=== PATIENT | female | born 1960 | race Caucasian/White ===

== ENCOUNTER → 2016-02-21 | Outpatient (CLI) | payer OTHER ==
[2016-02-21 13:24] LABS: HEMATOCRIT 43.6 % (36.0-47.0); HGB HCT DIFFERENCE 1.4; MEAN CORPUSCULAR HEMOGLOBIN 29.6 pg (27.0-33.4); MEAN CORPUSCULAR HGB CONC 34.4 g/dL (32.0-36.0); MEAN CORPUSCULAR VOLUME 86 fl (80-97); RED BLOOD COUNT 5.06 10^6/uL (3.72-5.28); RED CELL DISTRIBUTION WIDTH 13.9 % (11.5-14.0); WHITE BLOOD COUNT 7.1 10^3/uL (4.0-10.5)
[2016-02-21 13:27] LABS: PROTHROMBIN TIME 12.7 SEC (11.4-15.4)
[2016-02-21 13:28] LABS: PARTIAL THROMBOPLASTIN TIME 30.6 SEC (23.5-35.8)
[2016-02-21 13:46] LABS: ANION GAP 15 (5-19); BLOOD UREA NITROGEN 13 mg/dL (7-20); CALCIUM 9.7 mg/dL (8.4-10.2); CARBON DIOXIDE 25 mmol/L (22-30); CHLORIDE 102 mmol/L (98-107); CREATININE RESULT 0.62 mg/dL (0.52-1.25); GLUCOSE 81 mg/dL (75-110); POTASSIUM 4.8 mmol/L (3.6-5.0); SODIUM 141.9 mmol/L (137-145)
== END ==
LOC: OD 12:17
PROVIDERS: ATTEND Anesthesiology Pain Medicine
DX: Z01.89 Encounter for other specified special examinations (principal)
CPT/HCPCS: 36415; 80048; 85027; 85610; 85730

== ENCOUNTER 2016-08-05 05:49 | Emergency (ER) | payer OTHER ==
--- NOTE | 2016-08-05 07:06 | ER Document Report ---
ED Medical Screen (RME) - General Chief Complaint: Chest Wall Pain Stated Complaint: CHEST TIGHTNESS,COUGH Time Seen by Provider: 08/05/16 07:04 Information source: Patient Notes: Patient presents to the emergency department with complaints of cough fever. She denies chest pain at rest. She reports it only hurts when she coughs. She reports symptoms started on Friday. Started with a tickle in her throat. TRAVEL OUTSIDE OF THE [place] IN LAST 30 DAYS: No - Related Data Allergies/Adverse Reactions: aspirin [Aspirin] Allergy (Verified 01/25/15 18:35) azithromycin [Azithromycin] Allergy (Verified 01/25/15 18:35) ketorolac tromethamine [From Toradol] Allergy (Verified 01/25/15 18:35) naproxen sodium [From Anaprox] Allergy (Verified 01/25/15 18:35) Penicillins Allergy (Verified 01/25/15 18:35) tetracycline [Tetracycline] Allergy (Verified 01/25/15 18:35) Past Medical History - Past Medical History Cardiac Medical History: Denies: Hx Heart Attack, Hx Hypertension Pulmonary Medical History: Reports: Hx Asthma - CHILD NO PROBLEMS ADULT Neurological Medical History: Reports: Hx Migraine. Denies: Hx Cerebrovascular Accident, Hx Seizures Renal/ Medical History: Denies: Hx Peritoneal Dialysis GI Medical History: Denies: Hx Hepatitis, Hx Hiatal Hernia, Hx Ulcer Infectious Medical History: Denies: Hx Hepatitis Past Surgical History: Reports: Hx Hysterectomy, Hx Orthopedic Surgery - Bilateral knee, left foot and neck. Denies: Hx Mastectomy, Hx Open Heart Surgery, Hx Pacemaker - Immunizations Hx Diphtheria, Pertussis, Tetanus Vaccination: No Physical Exam - Vital signs Vitals: Temp Pulse Resp BP Pulse Ox 98.1 F 82 24 H 137/74 H 99 08/05/16 06:07 08/05/16 06:07 08/05/16 06:07 08/05/16 06:07 08/05/16 06:07 Course - Vital Signs Vital signs: Temp Pulse Resp BP Pulse Ox 98.1 F 82 24 H 137/74 H 99 08/05/16 06:07 08/05/16 06:07 08/05/16 06:07 08/05/16 06:07 08/05/16 06:07
--- NOTE | 2016-08-05 07:33 | RADIOLOGY REPORT (SQ) ---
EXAM DESCRIPTION: CHEST PA/LAT COMPLETED DATE/TIME: 08/05/2016 7:22 am REASON FOR STUDY: cough, fever COMPARISON: 10/09/2011. 10/14/2010. EXAM PARAMETERS: NUMBER OF VIEWS: two views TECHNIQUE: Digital Frontal and Lateral radiographic views of the chest acquired. RADIATION DOSE: NA LIMITATIONS: none FINDINGS: LUNGS AND PLEURA: Mild reticulonodular interstitial markings. MEDIASTINUM AND HILAR STRUCTURES: No masses or contour abnormalities. HEART AND VASCULAR STRUCTURES: Heart normal size. No evidence for failure. BONES: Moderate disc desiccation. HARDWARE: Cervicothoracic hardware fusion. OTHER: No other significant finding. IMPRESSION: Mild reticulonodular interstitial markings with interval worsening which may indicate ch ronic interstitial lung disease, atypical pneumonia, and/or mild pulmonary edema. TECHNICAL DOCUMENTATION: JOB ID: [id number] [employer]- All Rights Reserved
[2016-08-05 07:35] LABS: ABSOLUTE BASOPHILS # (AUTO) 0.1 10^3/uL (0.0-0.2); ABSOLUTE EOSINOPHILS # (AUTO) 0.5 10^3/uL (0.0-0.6); ABSOLUTE LYMPHOCYTES (AUTO) 2.5 10^3/uL (0.5-4.7); ABSOLUTE MONOCYTES (AUTO) 0.8 10^3/uL (0.1-1.4); ABSOLUTE NEUT (AUTO) 5.1 10^3/uL (1.7-8.2); BASOPHILS % (AUTO) 0.8 % (0-2); EOSINOPHILS % (AUTO) 5.8 % (0-6); LYMPHOCYTES % (AUTO) 27.8 % (13-45); MEAN CORPUSCULAR HEMOGLOBIN 29.2 pg (27.0-33.4); MEAN CORPUSCULAR HGB CONC 33.3 g/dL (32.0-36.0); MEAN CORPUSCULAR VOLUME 88 fl (80-97); MONOCYTES % (AUTO) 9.3 % (3-13); RED BLOOD COUNT 4.79 10^6/uL (3.72-5.28); RED CELL DISTRIBUTION WIDTH 13.6 % (11.5-14.0); SEGMENTED NEUTROPHILS % (AUTO) 56.3 % (42-78)
[2016-08-05] MEDS ORDERED: BENZONATATE 100 MG CAPSULE PO ONE (07:45)
[2016-08-05] MEDS ORDERED: IPRATROPIUM/ALBUTEROL 0.5-2.5 MG/3 ML AMPUL NEB ONE (07:45)
--- NOTE | 2016-08-05 07:45 | ER Document Report ---
ED General - General Chief Complaint: Chest Wall Pain Stated Complaint: CHEST TIGHTNESS,COUGH Time Seen by Provider: 08/05/16 07:04 Mode of Arrival: Ambulatory Information source: Patient Notes: Patient is a 56-year-old female who presents to the ER today for 1 week of cough that is worsening with now chills, some diarrhea, shortness of breath, wheezing. Patient denies history of asthma or COPD but states that she did start smoking again, 1 pack per about 3 days. She states that she has been taking Mucinex DM and Tessalon [id number] which have been helping a little but she still seems to be getting worse. She denies actual chest pain, just states that it is tight when she feels short of breath. She denies any nausea, vomiting, history of heart attack or stroke. TRAVEL OUTSIDE OF THE [place] IN LAST 30 DAYS: No - Related Data Allergies/Adverse Reactions: aspirin [Aspirin] Allergy (Verified 01/25/15 18:35) azithromycin [Azithromycin] Allergy (Verified 01/25/15 18:35) ketorolac tromethamine [From Toradol] Allergy (Verified 01/25/15 18:35) naproxen sodium [From Anaprox] Allergy (Verified 01/25/15 18:35) Penicillins Allergy (Verified 01/25/15 18:35) tetracycline [Tetracycline] Allergy (Verified 01/25/15 18:35) Past Medical History - General Information source: Patient - Social History Smoking Status: Unknown if Ever Smoked Family History: Reviewed & Not Pertinent - Past Medical History Cardiac Medical History: Denies: Hx Heart Attack, Hx Hypertension Pulmonary Medical History: Reports: Hx Asthma - CHILD NO PROBLEMS ADULT Neurological Medical History: Reports: Hx Migraine. Denies: Hx Cerebrovascular Accident, Hx Seizures Renal/ Medical History: Denies: Hx Peritoneal Dialysis GI Medical History: Denies: Hx Hepatitis, Hx Hiatal Hernia, Hx Ulcer Infectious Medical History: Denies: Hx Hepatitis Past Surgical History: Reports: Hx Hysterectomy, Hx Orthopedic Surgery - Bilateral knee, left foot and neck. Denies: Hx Mastectomy, Hx Open Heart Surgery, Hx Pacemaker - Immunizations Hx Diphtheria, Pertussis, Tetanus Vaccination: No Review of Systems - Review of Systems Constitutional: See HPI EENT: No symptoms reported Cardiovascular: No symptoms reported Respiratory: See HPI Gastrointestinal: No symptoms reported Genitourinary: No symptoms reported Female Genitourinary: No symptoms reported Musculoskeletal: No symptoms reported Skin: No symptoms reported Hematologic/Lymphatic: No symptoms reported Neurological/Psychological: No symptoms reported Physical Exam - Vital signs Vitals: Temp Pulse Resp BP Pulse Ox 98.1 F 82 24 H 137/74 H 99 08/05/16 06:07 08/05/16 06:07 08/05/16 06:07 08/05/16 06:07 08/05/16 06:07 - Notes Notes: PHYSICAL EXAMINATION: GENERAL: Mildly ill-appearing, patient has very raspy voice, but in no acute distress. HEAD: Atraumatic, normocephalic. EYES: Pupils equal round and reactive to light, extraocular movements intact, sclera anicteric, conjunctiva are normal. ENT: ear canals without erythema or foreign body, TMs pearly wan with good bony landmarks, nares patent, oropharynx clear without exudates. Moist mucous membranes. Airway patent NECK: Normal range of motion, supple without lymphadenopathy LUNGS: Minimal expiratory wheezes and lower lung francisco, no rales or rhonchi. HEART: Regular rate and rhythm without murmurs ABDOMEN: Soft, no tenderness. No guarding, no rebound BACK: no vertebral tenderness, normal ROM GI/: no CVA tenderness EXTREMITIES: Normal range of motion, no pitting edema. No cyanosis. NEUROLOGICAL: Cranial nerves grossly intact. Normal sensory/motor exams. PSYCH: Normal mood, normal affect. SKIN: Warm, Dry, normal turgor, no rashes or lesions noted Course - Re-evaluation Re-evalutation: 08/05/16 08:32 Lab work all unremarkable today including a normal white blood cell count, patient is afebrile with normal vital signs, 99% oxygen saturation on room air, unlabored breathing, EKG revealed a normal sinus rhythm at a rate of 82 bpm without evidence of ischemia or abnormality. Patient received cough medication , breathing treatments here and states that she does feel better. I will start her on Levaquin at this time for possible atypical pneumonia seen on chest x- ray. 08/05/16 08:33 - Vital Signs Vital signs: Temp Pulse Resp BP Pulse Ox 98.1 F 82 24 H 137/74 H 99 08/05/16 06:07 08/05/16 06:07 08/05/16 06:07 08/05/16 06:07 08/05/16 06:07 - Laboratory Result Diagrams: 08/05/16 07:13 08/05/16 07:13 Discharge - Discharge Clinical Impression: Pneumonia Qualifiers: Pneumonia type: due to unspecified organism Laterality: unspecified laterality Lung location: lower lobe of lung Qualified Code(s): J18.1 - Lobar pneumonia, unspecified organism Instructions: Pneumonia ([facility]) Additional Instructions: Return immediately for any new or worsening symptoms. Follow up with primary care provider, call tomorrow to make followup appointment. Prescriptions: Hydrocodone Bit/Homatropine [Hycodan Syrup 5-1.5 mg/5 ml Ud Cup] 5 ml PO Q4HP PRN #120 ml PRN Reason: Levofloxacin [Levaquin 750 mg Tablet] 750 mg PO DAILY #10 tablet Forms: Return to Work
[2016-08-05] MEDS ORDERED: LEVOFLOXACIN 750 MG/D5W RTU 150 ML IV ONE (07:46)
[2016-08-05] MEDS ORDERED: LEVOFLOXACIN 750 MG TABLET PO ONE (07:47)
[2016-08-05 07:58] LABS: ALANINE AMINOTRANSFERASE 23 U/L (9-52); ALBUMIN 3.6 g/dL (3.5-5.0); ALKALINE PHOSPHATASE 67 U/L (38-126); ANION GAP 8 (5-19); ASPARTATE AMINO TRANSFERASE 16 U/L (14-36); BILIRUBIN,DIRECT 0.2 mg/dL (0.0-0.4); BILIRUBIN,TOTAL 0.8 mg/dL (0.2-1.3); BLOOD UREA NITROGEN 13 mg/dL (7-20); CALCIUM 9.2 mg/dL (8.4-10.2); CARBON DIOXIDE 28 mmol/L (22-30); CHLORIDE 107 mmol/L (98-107); CREATININE RESULT 0.73 mg/dL (0.52-1.25); GLUCOSE 94 mg/dL (75-110); SODIUM 142.6 mmol/L (137-145); TOTAL PROTEIN 6.5 g/dL (6.3-8.2)
[2016-08-05] MEDS ORDERED: ALBUTEROL SULFATE HFA (90 MCG/PUFF) 8 GM MDI (1 MDI/ER DISP) IH PRN (08:37)
--- NOTE | 2016-08-05 08:42 | EKG REPORT ---
SEVERITY:- BORDERLINE ECG - SINUS RHYTHM PROBABLE LEFT ATRIAL ABNORMALITY : Confirmed by: Meenakshi Bravo 05-Aug-2016 08:40:43
[2016-08-05 09:22] VITALS: BP 102/56
== END 2016-08-05 09:22 | disposition home or self-care (01) ==
LOC: ER 05:49
DX: J18.1 Lobar pneumonia, unspecified organism (principal); R05 Cough; R68.83 Chills (without fever); R19.7 Diarrhea, unspecified; R06.02 Shortness of breath; R07.89 Other chest pain; R06.2 Wheezing; I10 Essential (primary) hypertension; Z88.6 Allergy status to analgesic agent; Z88.1 Allergy status to other antibiotic agents; Z88.8 Allergy status to other drugs, medicaments and biological substances; Z88.0 Allergy status to penicillin
CPT/HCPCS: 94640; 99284; 36415; 85025; 80053; 71020; 93005; 93010; J3490; J7620

== ENCOUNTER 2017-02-18 13:45 | Emergency (ER) | payer OTHER ==
--- NOTE | 2017-02-18 14:38 | ER Document Report ---
HPI - HPI Patient complains to provider of: Left knee pain and swelling Onset: Yesterday Onset/Duration: Gradual Quality of pain: Throbbing Severity: Moderate Pain Level: 4 Context: Patient states she noticed her knee hurting yesterday and last night she noticed some swelling. Denies injury. Patient does walk with limp due to nerve pain to left foot but denies known injury. Denies history of arthritis or gout. No redness to the knee. Associated Symptoms: None Exacerbated by: Walking Relieved by: Denies Similar symptoms previously: No Recently seen / treated by doctor: No - ROS ROS below otherwise negative: Yes Systems Reviewed and Negative: Yes All other systems reviewed and negative - CONSTITUTIONAL Constitutional: DENIES: Fever - EENT EENT: DENIES: Congestion - NEURO Neurology: DENIES: Headache - CARDIOVASCULAR Cardiovascular: DENIES: Chest pain - RESPIRATORY Respiratory: DENIES: Trouble Breathing - GASTROINTESTINAL Gastrointestinal: DENIES: Abdominal Pain - MUSCULOSKELETAL Musculoskeletal: REPORTS: Extremity pain - DERM Skin Color: Normal Past Medical History - General Information source: Patient - Social History Smoking Status: Current Every Day Smoker Chew tobacco use (# tins/day): No Frequency of alcohol use: Occasional Drug Abuse: None Lives with: Spouse/Significant other Family History: Reviewed & Not Pertinent Patient has suicidal ideation: No Patient has homicidal ideation: No Pulmonary Medical History: Reports: Hx Asthma - CHILD NO PROBLEMS ADULT Neurological Medical History: Reports: Hx Migraine Musculoskeltal Medical History: Reports Other - Nerve damage left foot after bunionectomy 4 years ago Past Surgical History: Reports: Hx Hysterectomy, Hx Orthopedic Surgery - Bilateral knee, left foot and neck - Immunizations Hx Diphtheria, Pertussis, Tetanus Vaccination: No Vertical Provider Document - CONSTITUTIONAL Agree With Documented VS: Yes Exam Limitations: No Limitations General Appearance: WD/WN, No Apparent Distress - INFECTION CONTROL TRAVEL OUTSIDE OF THE [place] IN LAST 30 DAYS: No - HEENT HEENT: Atraumatic, Normocephalic - RESPIRATORY Respiratory: Breath Sounds Normal, No Respiratory Distress O2 Sat by Pulse Oximetry: 97 - CARDIOVASCULAR Cardiovascular: Regular Rate, Regular Rhythm - MUSCULOSKELETAL/EXTREMETIES Musculoskeletal/Extremeties: Tender - Medial left knee, Edema - Mild edema noted to medial left knee.. negative: Eccymosis Notes: No erythema or warmth noted to left knee. - NEURO Level of Consciousness: Awake, Alert, Appropriate - DERM Integumentary: Warm, Dry, No Rash Course - Re-evaluation Re-evalutation: 02/18/17 15:47 X-ray showed no fracture but patient does have a small joint effusion. This was discussed with the patient. - Vital Signs Vital signs: Temp Pulse Resp BP Pulse Ox 98.3 F 85 18 114/68 97 02/18/17 13:57 02/18/17 13:57 02/18/17 13:57 02/18/17 13:57 02/18/17 13:57 Procedures - Immobilization Left Knee Pre-Proc Neuro Vasc Exam: Normal Immobilizer type: Gonzalez wrap, Crutches Performed by: PCT Post-Proc Neuro Vasc Exam: Normal Alignment checked and good: Yes Discharge - Discharge Clinical Impression: Effusion of knee joint, left Condition: Good Disposition: HOME, SELF-CARE Instructions: Use of Crutches ([facility]), Ice & Elevation ([facility]) Additional Instructions: Keep leg iced and elevated Ibuprofen or naproxen as needed for pain and swelling of knee Tramadol for pain as needed if ibuprofen does not help with the pain Follow-up with your doctor next week for recheck Return as needed Prescriptions: Tramadol HCl 50 mg PO TID PRN #20 tablet PRN Reason: Forms: Return to Work
--- NOTE | 2017-02-18 15:36 | RADIOLOGY REPORT (SQ) ---
EXAM DESCRIPTION: KNEE LEFT 4 VIEW COMPLETED DATE/TIME: 02/18/2017 3:20 pm REASON FOR STUDY: PAIN, SWELLING COMPARISON: None. NUMBER OF VIEWS: Four views. TECHNIQUE: AP, lateral, and both oblique radiographic images acquired of the left knee. LIMITATIONS: None. FINDINGS: MINERALIZATION: Osteopenic BONES: No acute fracture or dislocation. No worrisome bone lesions. JOINT: Small suprapatellar knee joint effusion. Mild patellofemoral, medial, and lateral compartment joint space narrowing SOFT TISSUES: No soft tissue swelling. No radio-opaque foreign body. OTHER: No other significant finding. IMPRESSION: No acute fracture Small joint effusion with joint space narrowing from osteoarthritis TECHNICAL DOCUMENTATION: JOB ID: [id number] [employer]- All Rights Reserved
[2017-02-18 16:16] VITALS: BP 113/62
== END 2017-02-18 16:15 | disposition home or self-care (01) ==
LOC: ER 13:45
DX: M25.462 Effusion, left knee (principal); M25.562 Pain in left knee; M79.89 Other specified soft tissue disorders; F17.200 Nicotine dependence, unspecified, uncomplicated
CPT/HCPCS: 99283

== ENCOUNTER → 2017-06-03 | Outpatient (CLI) | payer OTHER ==
--- NOTE | 2017-06-03 16:35 | WOMENS IMAGING REPORT ---
EXAM DESCRIPTION: BILAT SCREENING MAMMO W/CAD COMPLETED DATE/TIME: 06/03/2017 3:32 pm REASON FOR STUDY: SCREENING MAMMO Z12.31 ENCNTR SCREEN MAMMOGRAM FOR MALIGNANT NEOPLASM OF ERIN COMPARISON: Multiple since 2008 TECHNIQUE: Standard craniocaudal and mediolateral oblique views of each breast recorded using digita l acquisition. LIMITATIONS: None. FINDINGS: No masses, calcifications or architectural distortion. No areas of suspicion. Read with the assistance of CAD. .[facility] - R2 Cenova Version 1.3 .[facility] Imaging - R2 Cenova Version 1.3 .[facility] Imaging - R2 Cenova Version 2.4 .[facility] - R2 Cenova Version 2.4 .[facility] - R2 Certified Surgical Technician Version 9.2 IMPRESSION: NORMAL MAMMOGRAM. BIRADS 1. BREAST DENSITY: b. There are scattered areas of fibroglandular density. BIRAD: 1 NEGATIVE RECOMMENDATION: ROUTINE SCREENING Please continue yearly bilateral screening in May 2018. Consider bilateral screening tomosynthesis COMMENT: The patient has been notified of the results by letter per SA requirements. Additional no tification policies are in place for contacting patient with suspicious or incomplete findings. Quality ID #[id number]: The [employer] recommends an annual screening mammogram for women aged 40 years or over. This facility utilizes a reminder system to ensure that all patients receive reminder letters, and/or direct phone calls for appointments. This includes reminders for routine scr eening mammograms, diagnostic mammograms, or other Breast Imaging Interventions when appropriate. Th is patient will be placed in the appropriate reminder system. The [employer] (ACR) has developed recommendations for screening MRI of the breast s in certain patient populations, to be used in conjunction with mammography. Breast MRI surveillanc e may be appropriate for women with more than 20% lifetime risk of developing breast cancer as deter mined by genetic testing, significant family history of the disease, or history of mantle radiation f or Hodgkins Disease. ACR Practice Guidelines 2008. TECHNICAL DOCUMENTATION: FINDING NUMBER: (1) ASSESSMENT: (1) JOB ID: [id number] [employer])- All Rights Reserved Reading location - IP/workstation name: [email or web address]
== END ==
LOC: WI 07:43
PROVIDERS: ATTEND Family Medicine
DX: Z12.31 Encounter for screening mammogram for malignant neoplasm of breast (principal)
CPT/HCPCS: 77067

== ENCOUNTER 2017-10-09 11:38 | Emergency (ER) | payer OTHER ==
--- NOTE | 2017-10-09 11:50 | ER Document Report ---
ED Medical Screen (RME) - General TRAVEL OUTSIDE OF THE [place] IN LAST 30 DAYS: No <AMADOR BENTLEY - Last Filed: 10/09/17 11:50> <WILLI WHITE - Last Filed: 10/09/17 13:42> - General Chief Complaint: Headache Stated Complaint: HEADACHE Notes: 57 years old female was seen by me briefly out in the front triage. Presents with sudden onset of headache blurring of vision and nausea and vomiting since 8 :00 this morning. Also complaining of left shoulder pain. (AMADOR BENTLEY) - Related Data Allergies/Adverse Reactions: aspirin [Aspirin] Allergy (Verified 10/09/17 11:41) azithromycin [Azithromycin] Allergy (Verified 10/09/17 11:41) ketorolac tromethamine [From Toradol] Allergy (Verified 10/09/17 11:41) naproxen sodium [From Anaprox] Allergy (Verified 10/09/17 11:41) Penicillins Allergy (Verified 10/09/17 11:41) tetracycline [Tetracycline] Allergy (Verified 10/09/17 11:41) Past Medical History - Past Medical History Cardiac Medical History: Denies: Hx Heart Attack, Hx Hypertension Pulmonary Medical History: Reports: Hx Asthma - CHILD NO PROBLEMS ADULT Neurological Medical History: Reports: Hx Migraine. Denies: Hx Seizures Renal/ Medical History: Denies: Hx Peritoneal Dialysis GI Medical History: Denies: Hx Hiatal Hernia, Hx Ulcer Past Surgical History: Reports: Hx Hysterectomy, Hx Orthopedic Surgery - Bilateral knee, left foot and neck. Denies: Hx Mastectomy, Hx Open Heart Surgery - Immunizations Hx Diphtheria, Pertussis, Tetanus Vaccination: No <AMADOR BENTLEY - Last Filed: 10/09/17 11:50> - Vital signs Vitals: Pulse Ox 95 10/09/17 12:01 Course - Laboratory Result Diagrams: 10/09/17 12:00 10/09/17 12:36 <WILLI WHITE - Last Filed: 10/09/17 13:42> - Vital Signs Vital signs: Temp Pulse Resp BP Pulse Ox 97 21 H 142/88 H 97 10/09/17 12:06 10/09/17 12:06 10/09/17 12:06 10/09/17 12:06 - Laboratory Laboratory results interpreted by me: 10/09/17 10/09/17 11:53 12:00 RDW 14.1 H Eosinophils % 6.1 H POC Glucose 131 H Doctor's Discharge <AMADOR BENTLEY - Last Filed: 10/09/17 11:50> <WILLI WHITE - Last Filed: 10/09/17 13:42> - Discharge Clinical Impression: Headache Condition: Stable Disposition: HOME, SELF-CARE Instructions: Headache ([facility]) Referrals: REDDY MANTILLA MD [Primary Care Provider] - Follow up as needed
--- NOTE | 2017-10-09 12:05 | RADIOLOGY REPORT (SQ) ---
EXAM DESCRIPTION: CT HEAD WITHOUT COMPLETED DATE/TIME: 10/09/2017 11:51 am REASON FOR STUDY: mp stroke alert protocol COMPARISON: None. TECHNIQUE: Axial images acquired through the brain without intravenous contrast. Images reviewed wi th bone, brain and subdural windows. Additional sagittal and coronal reconstructions were generated. Images stored on PACS. All CT scanners at this facility use dose modulation, iterative reconstruction, and/or weight based d osing when appropriate to reduce radiation dose to as low as reasonably achievable (ALARA). [facility]: Dose Right [facility]: CareDose [facility]: Dose Right [facility]: Teradose 4D [facility]: [employer] RADIATION DOSE: CT Rad equipment meets quality standard of care and radiation dose reduction techniq ues were employed. CTDIvol: 53.2 mGy. DLP: 911 mGy-cm. mGy. LIMITATIONS: None. FINDINGS: VENTRICLES: Normal size and contour. CEREBRUM: No masses. No hemorrhage. No midline shift. No evidence for acute infarction. Normal gra y/white matter differentiation. No areas of low density in the white matter. CEREBELLUM: No masses. No hemorrhage. No alteration of density. No evidence for acute infarction. EXTRAAXIAL SPACES: No fluid collections. No masses. ORBITS AND GLOBE: No intra- or extraconal masses. Normal contour of globe without masses. CALVARIUM: No fracture. PARANASAL SINUSES: No fluid levels. SOFT TISSUES: No mass or hematoma. OTHER: No other significant finding. IMPRESSION: NORMAL BRAIN CT WITHOUT CONTRAST. EVIDENCE OF ACUTE STROKE: NO. COMMENT: Pertinent positive or negative findings of the imaging study reported as a CRITICAL EXAM neftali Carlos At11:59 on 10/09/2017. Category of Critical Exam: Stroke alert. Quality ID # [id number]: Final reports with documentation of one or more dose reduction techniques (e.g., Au tomated exposure control, adjustment of the mA and/or kV according to patient size, use of iterative reconstruction technique) TECHNICAL DOCUMENTATION: JOB ID: [id number] [employer]- All Rights Reserved Reading location - IP/workstation name: [email or web address]
[2017-10-09 12:07] VITALS: BP 142/88
--- NOTE | 2017-10-09 12:11 | ER Document Report ---
ED General - General Chief Complaint: Headache Stated Complaint: HEADACHE Time Seen by Provider: 10/09/17 12:09 TRAVEL OUTSIDE OF THE [place] IN LAST 30 DAYS: No - HPI Patient complains to provider of: headache Notes: 57-year-old female presents with posterior headache 10/10 throbbing in nature without radiation. She is also describing some visual disturbances of wavy lines across both visual francisco. Patient has a history of migraines and she normally gets his visual field disturbance with her classic migraine. Patient states the use resolved in an hour or so but this headache has progressed for 3 hours. Denies focal neurologic deficit - Related Data Allergies/Adverse Reactions: aspirin [Aspirin] Allergy (Verified 10/09/17 11:41) azithromycin [Azithromycin] Allergy (Verified 10/09/17 11:41) ketorolac tromethamine [From Toradol] Allergy (Verified 10/09/17 11:41) naproxen sodium [From Anaprox] Allergy (Verified 10/09/17 11:41) Penicillins Allergy (Verified 10/09/17 11:41) tetracycline [Tetracycline] Allergy (Verified 10/09/17 11:41) Past Medical History - Social History Smoking Status: Current Every Day Smoker Frequency of alcohol use: Rare Family History: Reviewed & Not Pertinent Patient has suicidal ideation: No Patient has homicidal ideation: No - Past Medical History Cardiac Medical History: Denies: Hx Heart Attack, Hx Hypertension Pulmonary Medical History: Reports: Hx Asthma - CHILD NO PROBLEMS ADULT Neurological Medical History: Reports: Hx Migraine. Denies: Hx Seizures Renal/ Medical History: Denies: Hx Peritoneal Dialysis GI Medical History: Denies: Hx Hiatal Hernia, Hx Ulcer Past Surgical History: Reports: Hx Hysterectomy, Hx Orthopedic Surgery - Bilateral knee, left foot and neck. Denies: Hx Mastectomy, Hx Open Heart Surgery - Immunizations Hx Diphtheria, Pertussis, Tetanus Vaccination: No Review of Systems - Review of Systems Notes: REVIEW OF SYSTEMS: CONSTITUTIONAL: -fevers, -chills EENT: -eye pain, -difficulty swallowing, -nasal congestion CARDIOVASCULAR: -chest pain, -syncope. RESPIRATORY: -cough, -SOB GASTROINTESTINAL: -abdominal pain, +nausea, -vomiting, -diarrhea GENITOURINARY: -dysuria, -hematuria MUSCULOSKELETAL: -back pain, -neck pain SKIN: -rash or skin lesions. HEMATOLOGIC: -easy bruising or bleeding. LYMPHATIC: -swollen, enlarged glands. NEUROLOGICAL: -altered mental status or loss of consciousness, +headache, - neurologic symptoms PSYCHIATRIC: -anxiety, -depression. ALL OTHER SYSTEMS REVIEWED AND NEGATIVE. Physical Exam - Vital signs Vitals: Pulse Ox 95 10/09/17 12:01 - Notes Notes: PHYSICAL EXAMINATION: GENERAL: Well-appearing, well-nourished and in no acute distress. HEAD: Atraumatic, normocephalic. EYES: Pupils equal round and reactive to light, extraocular movements intact, sclera anicteric, conjunctiva are normal. ENT: nares patent, oropharynx clear without exudates. Moist mucous membranes. NECK: Normal range of motion, supple without lymphadenopathy LUNGS: Breath sounds clear to auscultation bilaterally and equal. No wheezes rales or rhonchi. HEART: Regular rate and rhythm without murmurs ABDOMEN: Soft, nontender, normoactive bowel sounds. No guarding, no rebound. No masses appreciated. EXTREMITIES: Normal range of motion, no pitting or edema. No cyanosis. NEUROLOGICAL: Cranial nerves grossly intact. Normal speech, normal gait. Normal sensory and motor exams. PSYCH: Normal mood, normal affect. SKIN: Warm, Dry, normal turgor, no rashes or lesions noted. Course - Re-evaluation Re-evalutation: 10/09/17 13:38 Pleasant 57-year-old female with lengthy history of complex migraines include visual disturbance presents with another 1 of her classic episodes. Patient's extensive lab work unremarkable, cardiac evaluation negative for acute process, EKG nonischemic. Patient's CAT scan head shows no bleed or other acute processes. Patient given fluid resuscitation analgesia and antiemetics. Also given some diphenhydramine. Patient is pain-free at this time feels improved vision is returned to normal. Visual acuity is at baseline. Patient be discharged home follow-up with family doctor given strict return precautions - Vital Signs Vital signs: Temp Pulse Resp BP Pulse Ox 97 21 H 142/88 H 97 10/09/17 12:06 10/09/17 12:06 10/09/17 12:06 10/09/17 12:06 - Laboratory Result Diagrams: 10/09/17 12:00 10/09/17 12:36 Laboratory results interpreted by me: 10/09/17 10/09/17 11:53 12:00 RDW 14.1 H Eosinophils % 6.1 H POC Glucose 131 H - EKG Interpretation by Me Additional EKG results interpreted by me: 10/09/17 13:16 Normal sinus rhythm, no ST elevations or depressions no pathologic T-wave inversions normal QRS, QTC Discharge - Discharge Clinical Impression: Headache Qualifiers: Headache type: unspecified Headache chronicity pattern: acute headache Intractability: not intractable Qualified Code(s): R51 - Headache Condition: Stable Disposition: HOME, SELF-CARE Instructions: Headache ([facility]) Referrals: REDDY MANTILLA MD [Primary Care Provider] - Follow up as needed
[2017-10-09] MEDS ORDERED: NORMAL SALINE 1000 ML 1,000 ML IV ONE (12:14)
[2017-10-09] MEDS ORDERED: KETOROLAC TROMETHAMINE INJ/PF 30 MG/1 ML SDV IV ONE (12:14)
[2017-10-09 12:15] LABS: INTERNATIONAL RATION (INR) 0.93; PROTHROMBIN TIME 12.9 SEC (11.4-15.4)
[2017-10-09] MEDS ORDERED: ACETAMINOPHEN 325 MG TABLET PO ONE (12:15)
[2017-10-09] MEDS ORDERED: DIPHENHYDRAMINE HCL 25 MG CAPSULE PO ONE (12:15)
--- NOTE | 2017-10-09 12:15 | RADIOLOGY REPORT (SQ) ---
EXAM DESCRIPTION: CHEST SINGLE VIEW COMPLETED DATE/TIME: 10/09/2017 11:57 am REASON FOR STUDY: mp stroke alert protocol COMPARISON: None. EXAM PARAMETERS: NUMBER OF VIEWS: One view. TECHNIQUE: Single frontal radiographic view of the chest acquired. RADIATION DOSE: NA LIMITATIONS: None. FINDINGS: LUNGS AND PLEURA: No opacities, masses or pneumothorax. No pleural effusion. MEDIASTINUM AND HILAR STRUCTURES: No masses. Contour normal. HEART AND VASCULAR STRUCTURES: Heart normal in size. Normal vasculature. BONES: No acute findings. HARDWARE: None in the chest. OTHER: No other significant finding. IMPRESSION: NO ACUTE RADIOGRAPHIC FINDING IN THE CHEST. TECHNICAL DOCUMENTATION: JOB ID: [id number] [employer]- All Rights Reserved Reading location - IP/workstation name: [email or web address]
[2017-10-09 12:16] LABS: ABSOLUTE BASOPHILS # (AUTO) 0.1 10^3/uL (0.0-0.2); ABSOLUTE EOSINOPHILS # (AUTO) 0.6 10^3/uL (0.0-0.6); ABSOLUTE MONOCYTES (AUTO) 0.5 10^3/uL (0.1-1.4); ABSOLUTE NEUT (AUTO) 4.4 10^3/uL (1.7-8.2); EOSINOPHILS % (AUTO) 6.1 % (0-6); HEMATOCRIT 41.4 % (36.0-47.0); HEMOGLOBIN 14.3 g/dL (12.0-15.5); LYMPHOCYTES % (AUTO) 41.6 % (13-45); MEAN CORPUSCULAR HGB CONC 34.4 g/dL (32.0-36.0); MEAN CORPUSCULAR VOLUME 87 fl (80-97); MONOCYTES % (AUTO) 5.6 % (3-13); PARTIAL THROMBOPLASTIN TIME 29.8 SEC (23.5-35.8); PLATELET COUNT 273 10^3/uL (150-450); RED BLOOD COUNT 4.75 10^6/uL (3.72-5.28); RED CELL DISTRIBUTION WIDTH 14.1 % (11.5-14.0); SEGMENTED NEUTROPHILS % (AUTO) 45.7 % (42-78); TOTAL CELLS COUNTED % (AUTO) 100 %; WHITE BLOOD COUNT 9.6 10^3/uL (4.0-10.5)
[2017-10-09] MEDS ORDERED: METOCLOPRAMIDE HCL INJ/PF 10 MG/2 ML SDV IV ONE (12:20)
[2017-10-09 13:18] LABS: ALANINE AMINOTRANSFERASE 20 U/L (9-52); ALKALINE PHOSPHATASE 57 U/L (38-126); ANION GAP 10 (5-19); ASPARTATE AMINO TRANSFERASE 18 U/L (14-36); BILIRUBIN,DIRECT 0.2 mg/dL (0.0-0.4); BILIRUBIN,TOTAL 0.9 mg/dL (0.2-1.3); BLOOD UREA NITROGEN 17 mg/dL (7-20); CALCIUM 9.4 mg/dL (8.4-10.2); CARBON DIOXIDE 29 mmol/L (22-30); CHLORIDE 105 mmol/L (98-107); CREATINE KINASE 107 U/L (30-135); GLUCOSE 87 mg/dL (75-110); POTASSIUM 3.6 mmol/L (3.6-5.0); SODIUM 144.3 mmol/L (137-145); TOTAL PROTEIN 6.8 g/dL (6.3-8.2)
[2017-10-09 13:26] LABS: CREATINE KINASE MB 0.72 ng/mL (<4.55)
[2017-10-09 13:31] LABS: TROPONIN I < 0.012 ng/mL
--- NOTE | 2017-10-09 14:17 | EKG REPORT ---
SEVERITY:- BORDERLINE ECG - SINUS RHYTHM PROBABLE LEFT ATRIAL ABNORMALITY : Confirmed by: Tang Rey MD 09-Oct-2017 14:17:13
== END 2017-10-09 14:45 | disposition home or self-care (01) ==
LOC: ER 11:38
DX: G43.109 Migraine with aura, not intractable, without status migrainosus (principal); R11.0 Nausea; F17.200 Nicotine dependence, unspecified, uncomplicated; Z88.6 Allergy status to analgesic agent; Z88.1 Allergy status to other antibiotic agents; Z88.8 Allergy status to other drugs, medicaments and biological substances; Z88.0 Allergy status to penicillin
CPT/HCPCS: 93005; 99284; 96361; 96374; 36415; 82553; 82962; 82550; 85025; 85610; 85730; 80053; 84484; 71045; 70450; 93010; J2765; J7030

== ENCOUNTER 2018-02-08 07:44 | Emergency (ER) | payer OTHER ==
[2018-02-08] MEDS ORDERED: IPRATROPIUM/ALBUTEROL 0.5-2.5 MG/3 ML AMPUL NEB ONE (08:45)
--- NOTE | 2018-02-08 08:52 | EKG REPORT ---
SEVERITY:- BORDERLINE ECG - SINUS RHYTHM PROBABLE LEFT ATRIAL ABNORMALITY : Confirmed by: Meenakshi Bravo 08-Feb-2018 08:51:44
[2018-02-08 09:09] LABS: ABSOLUTE EOSINOPHILS # (AUTO) 0.1 10^3/uL (0.0-0.6); ABSOLUTE LYMPHOCYTES (AUTO) 1.1 10^3/uL (0.5-4.7); ABSOLUTE MONOCYTES (AUTO) 0.6 10^3/uL (0.1-1.4); ABSOLUTE NEUT (AUTO) 4.3 10^3/uL (1.7-8.2); BASOPHILS % (AUTO) 0.3 % (0-2); EOSINOPHILS % (AUTO) 1.5 % (0-6); HEMATOCRIT 45.3 % (36.0-47.0); HEMOGLOBIN 15.7 g/dL (12.0-15.5); LYMPHOCYTES % (AUTO) 18.1 % (13-45); MEAN CORPUSCULAR HEMOGLOBIN 29.8 pg (27.0-33.4); MEAN CORPUSCULAR HGB CONC 34.6 g/dL (32.0-36.0); MEAN CORPUSCULAR VOLUME 86 fl (80-97); MONOCYTES % (AUTO) 9.4 % (3-13); PLATELET COUNT 228 10^3/uL (150-450); RED BLOOD COUNT 5.25 10^6/uL (3.72-5.28); RED CELL DISTRIBUTION WIDTH 13.4 % (11.5-14.0); SEGMENTED NEUTROPHILS % (AUTO) 70.7 % (42-78); TOTAL CELLS COUNTED % (AUTO) 100 %; WHITE BLOOD COUNT 6.1 10^3/uL (4.0-10.5)
[2018-02-08 09:28] LABS: A TYPE INFLUENZA AG NEGATIVE (NEGATIVE); B INFLUENZA AG NEGATIVE (NEGATIVE)
[2018-02-08 09:31] LABS: ALANINE AMINOTRANSFERASE 22 U/L (9-52); ALBUMIN 4.3 g/dL (3.5-5.0); ALKALINE PHOSPHATASE 66 U/L (38-126); ANION GAP 9 (5-19); ASPARTATE AMINO TRANSFERASE 32 U/L (14-36); BILIRUBIN,DIRECT 0.2 mg/dL (0.0-0.4); BILIRUBIN,TOTAL 0.7 mg/dL (0.2-1.3); BLOOD UREA NITROGEN 13 mg/dL (7-20); CALCIUM 9.6 mg/dL (8.4-10.2); CARBON DIOXIDE 28 mmol/L (22-30); CHLORIDE 103 mmol/L (98-107); GLUCOSE 97 mg/dL (75-110); POTASSIUM 3.8 mmol/L (3.6-5.0); TOTAL PROTEIN 7.2 g/dL (6.3-8.2)
[2018-02-08] MEDS ORDERED: PREDNISONE 20 MG TABLET PO ONE (09:32)
[2018-02-08] MEDS ORDERED: NORMAL SALINE 1000 ML 1,000 ML IV ONE (09:32)
--- NOTE | 2018-02-08 09:54 | RADIOLOGY REPORT (SQ) ---
EXAM DESCRIPTION: CHEST 2 VIEWS COMPLETED DATE/TIME: 02/08/2018 9:42 am REASON FOR STUDY: fever, cough COMPARISON: 2017. TECHNIQUE: Frontal and lateral radiographic views of the chest acquired. NUMBER OF VIEWS: Two view. LIMITATIONS: None. FINDINGS: LUNGS AND PLEURA: No opacities, masses or pneumothorax. No pleural effusion. MEDIASTINUM AND HILAR STRUCTURES: No masses or contour abnormalities. HEART AND VASCULAR STRUCTURES: Heart normal size. No evidence for failure. BONES: No acute findings. HARDWARE: None in the chest. OTHER: No other significant finding. IMPRESSION: NO SIGNIFICANT RADIOGRAPHIC FINDING IN THE CHEST. TECHNICAL DOCUMENTATION: JOB ID: [id number] [employer]- All Rights Reserved Reading location - IP/workstation name: [email or web address]
[2018-02-08 10:50] VITALS: BP 105/60
--- NOTE | 2018-02-08 10:52 | ER Document Report ---
ED General - General Chief Complaint: Chest Pain Stated Complaint: CHEST PAIN Time Seen by Provider: 02/08/18 08:31 Mode of Arrival: Ambulatory Information source: Patient Notes: Patient is a 57-year-old female who presents with chief complaint of productive cough and fever that started on 02/04/18. She reports that multiple members of her family have had upper respiratory illnesses. She reports she has tried taking Tylenol and NyQuil without relief. She has not had a flu or pneumonia v accine. She reports past medical history of asthma. She is a smoker. She denies any nausea, vomiting, diarrhea or any other symptoms. TRAVEL OUTSIDE OF THE [place] IN LAST 30 DAYS: No - Related Data Allergies/Adverse Reactions: aspirin [Aspirin] Allergy (Verified 02/08/18 07:45) azithromycin [Azithromycin] Allergy (Verified 02/08/18 07:45) ketorolac tromethamine [From Toradol] Allergy (Verified 02/08/18 07:45) naproxen sodium [From Anaprox] Allergy (Verified 02/08/18 07:45) Penicillins Allergy (Verified 02/08/18 07:45) tetracycline [Tetracycline] Allergy (Verified 02/08/18 07:45) Past Medical History - General Information source: Patient - Social History Smoking Status: Current Some Day Smoker Chew tobacco use (# tins/day): No Frequency of alcohol use: Rare Drug Abuse: None Family History: Reviewed & Not Pertinent Patient has suicidal ideation: No Patient has homicidal ideation: No - Past Medical History Cardiac Medical History: Denies: Hx Heart Attack, Hx Hypertension Pulmonary Medical History: Reports: Hx Asthma - CHILD NO PROBLEMS ADULT Neurological Medical History: Reports: Hx Migraine. Denies: Hx Seizures Renal/ Medical History: Denies: Hx Peritoneal Dialysis GI Medical History: Denies: Hx Hiatal Hernia, Hx Ulcer Past Surgical History: Reports: Hx Hysterectomy, Hx Orthopedic Surgery - Bilateral knee, left foot and neck. Denies: Hx Mastectomy, Hx Open Heart Burns rgery - Immunizations Hx Diphtheria, Pertussis, Tetanus Vaccination: No Review of Systems - Review of Systems Constitutional: Chills, Fever EENT: denies: Nose congestion, Nose discharge, Sinus pressure, Sinus discharge, Throat pain, Difficulty swallowing Cardiovascular: Chest pain - with cough Respiratory: Cough, Hurts to breathe Gastrointestinal: denies: Abdominal pain, Diarrhea, Nausea, Vomiting Genitourinary: denies: Dysuria, Flank pain Musculoskeletal: Other - Generalized body aches Hematologic/Lymphatic: No symptoms reported Physical Exam - Vital signs Vitals: Temp Pulse Resp BP Pulse Ox 98.5 F 103 H 18 113/79 97 02/08/18 07:57 02/08/18 07:57 02/08/18 07:57 02/08/18 07:57 02/08/18 07:57 - Notes Notes: PHYSICAL EXAMINATION: GENERAL: Well-nourished and in no acute distress. HEAD: Atraumatic, normocephalic. EYES: Pupils equal round and reactive to light, extraocular movements intact, conjunctiva are normal. ENT: Nares patent, oropharynx clear without exudates. Moist mucous membranes. NECK: Normal range of motion, supple without lymphadenopathy LUNGS: Breath sounds clear to auscultation bilaterally and equal. Faint expiratory wheezing noted bilaterally. HEART: Regular rate and rhythm without murmurs ABDOMEN: Soft, nontender, nondistended abdomen. No guarding, no rebound. No masses appreciated. Female : No CVA tenderness Musculoskeletal: Normal range of motion, no pitting or edema. No cyanosis. NEUROLOGICAL: Cranial nerves grossly intact. Normal speech, normal gait. Normal sensory, motor exams PSYCH: Normal mood, normal affect. SKIN: Warm, Dry, normal turgor, no rashes or lesions noted. Course - Re-evaluation Re-evalutation: CBC, CMP and troponin are unremarkable. Lactic acid 1.1. Influenza test is negative. Chest x-ray with no acute findings to include infiltrates. EKG shows a sinus rhythm, rate of 89, normal axis, no ST segment elevations or depressions. Patient was given DuoNeb treatment, prednisone 60 mg p.o. and 1 L normal saline bolus. Patient is feeling improved while in the department. Lung sounds are clear after DuoNeb treatment. Patient's vital signs remained stable. Patient will be discharged home with likely viral bronchitis. Patient provided with a work note for today and tomorrow. - Vital Signs Vital signs: Temp Pulse Resp BP Pulse Ox 98.9 F 103 H 15 105/60 100 02/08/18 10:46 02/08/18 07:57 02/08/18 10:46 02/08/18 10:46 02/08/18 10:46 - Laboratory Result Diagrams: 02/08/18 08:43 02/08/18 08:43 Laboratory results interpreted by me: 02/08/18 08:43 Hgb 15.7 H - Diagnostic Test Radiology reviewed: Image reviewed, Reports reviewed - EKG Interpretation by Me EKG shows normal: Sinus rhythm Rate: Normal Rhythm: NSR Discharge - Discharge Clinical Impression: Bronchitis Condition: Stable Disposition: HOME, SELF-CARE Additional Instructions: BRONCHITIS: You have acute bronchitis. This disease is an infection or inflammation of the air passageways in your lungs. Symptoms usually include cough, low grade fever, shortness of breath, and wheezing. The cough usually persists for a couple of weeks. Most cases of bronchitis get better without antibiotics. We prescribe antibiotics when we believe bacteria are damaging your airways, or if there's high risk the bronchitis will worsen into pneumonia. Increase your fluid intake. A cool mist humidifier may make your lungs more comfortable. An expectorant (cough medicine that loosens phlegm) can help. If you smoke, STOP!!! Recovery from bronchitis can be somewhat slow, but you should see improvement within a day or two. Repeated episodes of bronchitis may result in lung damage -- for example, chronic bronchitis, recurrent pneumonias, or emphysema. Call the doctor if you develop increasing fever, shortness of breath, chest pain, bloody sputum, or otherwise worsen. If you have not improved at all after several days, contact the physician. COUGH-SUPPRESSANT & EXPECTORANT MEDICATION: You are to use a cough medication as needed for relief of symptoms. This medicine is a combination of an expectorant (to make the mucous thinner and more easily "coughed up") and a cough suppressant (to reduce the frequency of coughing). The cough-suppressant medicine is related to narcotics. You may experience mild nausea and sleepiness. Some patients who are very sensitive to narcotics may have stomach pain from this medicine. Taking the medicine with food reduces these side effects. Do not drive or work with machinery until you know how this medicine affects you. The expectorant should have no side effects. Iodine-containing expectorants (such as organidin) should not be taken by persons with active t hyroid disease unless approved by your doctor. Call the doctor if you develop shortness of breath, hives, rash, itching, lightheadedness, or severe nausea and vomiting. INHALED BRONCHODILATORS: You have received a treatment of and/or prescription for an inhaled bronchodilator -- a medication which stimulates the airways in the lung to dilate. This improves the flow of air in asthma, bronchitis, and emphysema. These medicines have some similarity to adrenaline, and can cause similar side effects: shakiness, racing heart, and a sense of nervousness. These side effects decrease with time. Contact your doctor if these side effects are severe. Do not over-use the medicine. Too-frequent use of the inhaler may make it ineffective. Call your doctor if the inhaler is not controlling your symptoms at the prescribed doses. STEROID MEDICATION: You have been given an injection of or oral medicine of the cortisone/steroid class. This medication is used to control inflammation or allergy. Andrei t is usually only given for a short period of time, until the acute process subsides. There are usually no side effects from short-term use of cortisone-like medications. Some persons feel an increased sense of well-being and are not sleepy at bedtime. Long-term use of cortisone medications is best avoided, unless required for a severe condition. If your condition does not remit, or relapses after the course of corticosteroid medication, you should consult your physician. USE OF ACETAMINOPHEN (Tylenol): Acetaminophen may be taken for pain relief or fever control. It's much safer than aspirin, offering a wider range of "safe" dosages. It is safe during . Some brand names are Tylenol, Panadol, Datril, Anacin 3, Tempra, and Liquiprin. Acetaminophen can be repeated every four hours. The following are maximum recommended dosages: >89 pounds or adults 650 mg to 900 mg Acetaminophen can be repeated every four hours. Maximum dose not to exceed 4000 mg a day. SMOKING: If you smoke, you should stop smoking. The tar and chemicals in cigarette smoke are harmful. Smoking has been shown to cause: emphysema chronic bronchitis lung cancer mouth and throat cancer stomach and pancreas cancer premature aging defects In addition, smoking increases ear and lung infections in children of smokers. FOLLOW-UP CARE: If you have been referred to a physician for follow-up care, call the physicians office for an appointment as you were instructed or within the next two days. If you experience worsening or a significant change in your symptoms, notify the physician immediately or return to the Emergency Department at any time for re-evaluation. Please take medications as prescribed. Take Tylenol or ibuprofen for any body aches or fever. Call your primary care provider tomorrow to schedule an appointment for a follow-up later this week. Return to the emergency department if you experience worsening symptoms, fever that is not relieved by Tylenol or ibuprofen, increased shortness of breath, difficulty breathing or any other symptom that is concerning to you. Prescriptions: Benzonatate [Tessalon Perles 100 mg Capsule] 100 mg PO Q8HP PRN #40 capsule PRN Reason: Albuterol Sulfate [Proair HFA Inhalation Aerosol 8.5 gm MDI] 2 puff IH Q4H PRN #1 mdi PRN Reason: Phenylephrine HCl/Cod/Prometh [Phenergan Vc-Codeine Syrup] 10 ml PO Q6H PRN #120 ml PRN Reason: Cough Prednisone [Deltasone 20 mg Tablet] 3 tab PO DAILY 4 Days #12 tablet Forms: Return to Work Referrals: REDDY MANTILLA MD [Primary Care Provider] - Follow up as needed
== END 2018-02-08 10:58 | disposition home or self-care (01) ==
LOC: ER 07:44
DX: J40 Bronchitis, not specified as acute or chronic (principal); R07.9 Chest pain, unspecified; R50.9 Fever, unspecified; F17.200 Nicotine dependence, unspecified, uncomplicated; Z88.6 Allergy status to analgesic agent; Z88.3 Allergy status to other anti-infective agents; Z88.0 Allergy status to penicillin; Z90.710 Acquired absence of both cervix and uterus
CPT/HCPCS: 93005; 94640; 99285; 96360; 36415; 83605; 85025; 80053; 84484; 87804; 71046; 93010; J7512; J7030; J7620

== ENCOUNTER 2018-02-11 11:41 | Emergency (ER) | payer OTHER ==
[2018-02-11] MEDS ORDERED: IPRATROPIUM/ALBUTEROL 0.5-2.5 MG/3 ML AMPUL NEB ONE ×2 (12:40→15:14)
--- NOTE | 2018-02-11 12:41 | ER Document Report ---
ED Medical Screen (RME) - General Chief Complaint: Cough Stated Complaint: COUGH,CONGESTION,SHORT OF BREATH Time Seen by Provider: 02/11/18 12:35 Mode of Arrival: Ambulatory Information source: Patient, [facility] Records Notes: 57-year-old female presents for the second time this week with complaint of cough, shortness of breath, chest pain with coughing. Patient was discharged home with an albuterol inhaler, prednisone and cough medicine and states that this is not helped. Patient does have a [id number] smoking history. I have greeted and performed a rapid initial assessment of this patient. A comprehensive ED assessment and evaluation of the patient, analysis of test results and completion of medical decision making process we will be contacted by additional ED providers. PHYSICAL EXAMINATION: Vital signs reviewed-tachypneic GENERAL: Well-appearing, well-nourished and in no acute distress. LUNGS: Diminished breath sounds Musculoskeletal: Normal range of motion NEUROLOGICAL: Normal speech, normal gait. PSYCH: Normal mood, normal affect. SKIN: Warm, Dry, normal turgor, no rashes or lesions noted. TRAVEL OUTSIDE OF THE [place] IN LAST 30 DAYS: No - HPI Onset: Last week Onset/Duration: Persistent, Worse Quality of pain: Achy, Burning Severity: Mild Associated Symptoms: Chest pain, Cough (nonproductive), Shortness of breath Exacerbated by: Coughing Relieved by: Denies Similar symptoms previously: Yes Recently seen / treated by doctor: Yes - Related Data Smoking: Cigarettes Frequency of alcohol use: None Drug Abuse: None Allergies/Adverse Reactions: aspirin [Aspirin] Allergy (Verified 02/11/18 12:38) azithromycin [Azithromycin] Allergy (Verified 02/11/18 12:38) ketorolac tromethamine [From Toradol] Allergy (Verified 02/11/18 12:38) naproxen sodium [From Anaprox] Allergy (Verified 02/11/18 12:38) Penicillins Allergy (Verified 02/11/18 12:38) tetracycline [Tetracycline] Allergy (Verified 02/11/18 12:38) Past Medical History - Social History Chew tobacco use (# tins/day): No Frequency of alcohol use: Occasional Drug Abuse: Marijuana - Past Medical History Cardiac Medical History: Denies: Hx Heart Attack, Hx Hypertension Pulmonary Medical History: Reports: Hx Asthma - CHILD NO PROBLEMS ADULT Neurological Medical History: Reports: Hx Migraine. Denies: Hx Seizures Renal/ Medical History: Denies: Hx Peritoneal Dialysis GI Medical History: Denies: Hx Hiatal Hernia, Hx Ulcer Past Surgical History: Reports: Hx Hysterectomy, Hx Orthopedic Surgery - Bilateral knee, left foot and neck. Denies: Hx Mastectomy, Hx Open Heart Surgery - Immunizations Hx Diphtheria, Pertussis, Tetanus Vaccination: No Physical Exam - Vital signs Vitals: Temp Pulse Resp BP Pulse Ox 98.2 F 80 24 H 125/72 97 02/11/18 12:00 02/11/18 12:00 02/11/18 12:00 02/11/18 12:00 02/11/18 12:00 Course - Vital Signs Vital signs: Temp Pulse Resp BP Pulse Ox 98.2 F 80 24 H 125/72 97 02/11/18 12:00 02/11/18 12:00 02/11/18 12:00 02/11/18 12:00 02/11/18 12:00 Doctor's Discharge - Discharge Referrals: REDDY MANTILLA MD [Primary Care Provider] - Follow up as needed
[2018-02-11 13:06] LABS: VENOUS BLOOD HCO3 25.3 mmol/L (20-32); VENOUS BLOOD PCO2 29.2 mmHg (35-63); VENOUS BLOOD PH 7.56 (7.30-7.42)
[2018-02-11] MEDS ORDERED: METHYLPREDNISOLONE INJ 125 MG/2 ML SDV IV ONE (15:14)
[2018-02-11] MEDS ORDERED: KETOROLAC TROMETHAMINE INJ/PF 30 MG/1 ML SDV IV ONE (15:14)
[2018-02-11] MEDS ORDERED: NORMAL SALINE 1000 ML 1,000 ML IV ONE (15:14)
[2018-02-11] MEDS ORDERED: HYDROCODONE BIT/HOMATROPINE SYRUP 5 ML UDCUP PO ONE (15:20)
--- NOTE | 2018-02-11 15:21 | ER Document Report ---
ED Respiratory Problem - General Mode of Arrival: Ambulatory Information source: Patient TRAVEL OUTSIDE OF THE [place] IN LAST 30 DAYS: No - HPI Patient complains to provider of: Chest pain, Cough, Short of breath Onset: Last week Duration: Worse/persistent Quality of pain: Achy Severity: Moderate Pain Level: 3 Context: Smoker Short of Breath: Moderate Chest pain/discomfort: Tightness Cough: Productive Sputum amount: Small Sputum color: [place] tinged Sputum consistency: Mucoid At home treatment: Bronchodilators, Oral steroids Associated symptoms: Bloody cough, Chest pain/discomfort, Congestion, Cough, Fever, Short of breath, Sweaty Similar symptoms previously: Yes Recently seen / treated by doctor: Yes <SHIN RAMIREZ - Last Filed: 02/11/18 23:50> <HORACIO ALBA - Last Filed: 02/12/18 02:54> - General Chief Complaint: Cough Stated Complaint: COUGH,CONGESTION,SHORT OF BREATH Time Seen by Provider: 02/11/18 12:35 - HPI Notes: Patient is a 57-year-old female with a history of smoking who presents to the emergency room today complaining of worsening shortness of breath with difficulty breathing, night sweats, bloody cough, pain in her backs and ribs, symptoms have been going on for the past 4-5 days and worsening despite being seen in this department on 1230 and being placed on several medications for treatment of viral bronchitis, she reports having some nausea vomiting and diarrhea with decreased appetite, she did not get a flu shot this year, states she has not smoked since being sick for the past few days, is sick now but symptoms started after patient (SHIN RAMIREZ) - Related Data Allergies/Adverse Reactions: aspirin [Aspirin] Allergy (Verified 02/11/18 12:38) azithromycin [Azithromycin] Allergy (Verified 02/11/18 12:38) ketorolac tromethamine [From Toradol] Allergy (Verified 02/11/18 12:38) naproxen sodium [From Anaprox] Allergy (Verified 02/11/18 12:38) Penicillins Allergy (Verified 02/11/18 12:38) tetracycline [Tetracycline] Allergy (Verified 02/11/18 12:38) Past Medical History - General Information source: Patient, [facility] Records - Social History Smoking Status: Current Every Day Smoker Chew tobacco use (# tins/day): No Frequency of alcohol use: Occasional Drug Abuse: Marijuana Family History: Reviewed & Not Pertinent Patient has suicidal ideation: No Patient has homicidal ideation: No - Past Medical History Cardiac Medical History: Denies: Hx Heart Attack, Hx Hypertension Pulmonary Medical History: Reports: Hx Asthma - CHILD NO PROBLEMS ADULT Neurological Medical History: Reports: Hx Migraine. Denies: Hx Seizures Renal/ Medical History: Denies: Hx Peritoneal Dialysis GI Medical History: Denies: Hx Hiatal Hernia, Hx Ulcer Past Surgical History: Reports: Hx Hysterectomy, Hx Orthopedic Surgery - Bilateral knee, left foot and neck. Denies: Hx Mastectomy, Hx Open Heart Surgery - Immunizations Hx Diphtheria, Pertussis, Tetanus Vaccination: No <SHIN RAMIREZ - Last Filed: 02/11/18 23:50> Review of Systems - Review of Systems Constitutional: See HPI EENT: See HPI Cardiovascular: No symptoms reported Respiratory: See HPI Gastrointestinal: See HPI Genitourinary: No symptoms reported Female Genitourinary: No symptoms reported Musculoskeletal: See HPI Skin: No symptoms reported Hematologic/Lymphatic: No symptoms reported Neurological/Psychological: No symptoms reported -: Yes All other systems reviewed and negative <SHIN RAMIREZ - Last Filed: 02/11/18 23:50> Physical Exam - Vital signs Interpretation: Normal - General General appearance: Appears well, Alert - HEENT Head: Normocephalic, Atraumatic Eyes: Normal Conjunctiva: Normal Eyelashes: Normal Pupils: PERRL Pharynx: Erythema. No: Exudate, Tonsillar hypertrophy, Uvular edema, Potential airway comprom. Neck: Normal - So - Respiratory Respiratory status: No respiratory distress Chest status: Tender - Diffuse tenderness to palpate in the anterior chest wall Breath sounds: Normal Chest palpation: Normal - Cardiovascular Rhythm: Regular Heart sounds: Normal auscultation Murmur: No - Abdominal Inspection: Normal Distension: No distension Bowel sounds: Normal Tenderness: Nontender Organomegaly: No organomegaly - Back Back: Normal, Nontender - Extremities General upper extremity: Normal inspection, Nontender, Normal color, Normal ROM, Normal temperature General lower extremity: Normal inspection, Nontender, Normal color, Normal ROM, Normal temperature, Normal weight bearing. No: Soni's sign - Neurological Neuro grossly intact: Yes Cognition: Normal Orientation: AAOx4 [place] Coma Scale Eye Opening: Spontaneous [place] Coma Scale Verbal: Oriented [place] Coma Scale Motor: Obeys Commands [place] Coma Scale Total: 15 Speech: Normal Motor strength normal: LUE, RUE, LLE, RLE Sensory: Normal - Psychological Associated symptoms: Normal affect, Normal mood - Skin Skin Temperature: Warm Skin Moisture: Dry Skin Color: Normal <SHIN RAMIREZ - Last Filed: 02/11/18 23:50> - Vital signs Vitals: Temp Pulse Resp BP Pulse Ox 98.2 F 80 24 H 125/72 97 02/11/18 12:00 02/11/18 12:00 02/11/18 12:00 02/11/18 12:00 02/11/18 12:00 Course - Laboratory Result Diagrams: 02/11/18 16:10 02/11/18 16:10 - Diagnostic Test Radiology reviewed: Image reviewed, Reports reviewed - EKG Interpretation by Me EKG shows normal: Sinus rhythm Rate: Normal Rhythm: NSR <SHIN RAMIREZ - Last Filed: 02/11/18 23:50> - Laboratory Result Diagrams: 02/11/18 16:10 02/11/18 22:55 <HORACIO ALBA - Last Filed: 02/12/18 02:54> - Re-evaluation Re-evalutation: 02/11/18 17:39 Patient resting comfortably, reports no change in symptoms since arriving, labs are unremarkable except for potassium noted at 2.9, magnesium has been ordered, chest x-ray is unremarkable, lungs are clear to auscultation, nursing staff brought me a rhythm strip which shows what appears to be a run of V. tach followed by 2 regular beats and 3-4 more beats which resemble V. tach, I did place a call to the on-call adoption social worker, Dr. Yoo who requested I fax him a hard copy of the rhythm strip, I am awaiting a callback from him with recommendations for treatment 02/11/18 18:19 Patient was discussed with narrowing Dr. Yoo who had the opportunity to review the EKG and the rhythm strip previously mentioned, he suggests that patient's abnormal rhythm was likely secondary to albuterol treatments and decreased potassium, recommends replacing potassium and request that I give patient his cell phone number of [phone] to call tomorrow to set up an appointment to have an outpatient evaluation 02/11/18 19:35 Patient was discussed with hospitalist, Dr. Brito, I did review patient's symptoms, lab findings, EKG findings and rhythm strip indicating about 9 beats of V. tach, as well as my discussion with cardiology, he is in agreement with the adoption social worker that symptoms are likely secondary to decreased potassium and albuterol treatments, also recommends patient be discharged home with outpatient follow-up (SHIN RAMIREZ) 02/12/18 02:47 Dr. Ramirez put the patient for discharge. The nurse went to discharge the patient the patient became very upset and said that she was still short of breath and that she did not want to leave because she felt we did not do anything for her. Dr. Ramirez has since left and I therefore have gone and reevaluated the patient after reviewing the records. Patient is currently on a monitor. She is in a normal sinus rhythm with a rate in the 70s. Her pulse ox is 99% on room air. She has no increased work of breathing. Her voice is a little bit hoarse from coughing but otherwise looks okay. Her lung francisco are completely clear without any wheezing and she has very good air exchange bilaterally. I talked to her at length about what was bothering her. She seems more emotionally upset than anything. She says she feels that she was left in the waiting room for too long and that there is a bed available, yet they forgot about her and did not bring her back. She also says that she rang the call durbin several times since she has been here she feels that people are ignoring her and do not care. I informed her that although we have been busy I do apologize for her long wait and the fact that it took a while for people to come to her. I informed her that on her reevaluation her lung francisco are completely clear. I informed her that she is already on prednisone which is the appropriate treatment for her bronchitis and laryngitis. She has no stridor. She has no increased work of breathing. There is nothing on exam that I can find that would cause me to change her to admission. I talked at length about this. Also informed her that she needs to continue to stop smoking. I did see the notes about the short run of V. tach and the discussion with the adoption social worker and the hospitalist. I informed her that she should still call the adoption social worker tomorrow. She has Dr. Robison's cell phone number. I told her that she needs to follow-up with him as he requested. Her potassium has been normalized. Patient is now agreeable to going home after our conversation. She has no further questions at this time. She seems to be more calm down and does not have any further concerns at this time. (HORACIO ALBA) - Vital Signs Vital signs: Temp Pulse Resp BP Pulse Ox 98.2 F 80 17 100/51 L 94 02/11/18 12:00 02/11/18 12:00 02/12/18 01:01 02/12/18 01:00 02/12/18 01:01 - Laboratory Laboratory results interpreted by me: 02/11/18 02/11/18 02/11/18 12:50 16:10 16:10 WBC 10.6 H Monocytes % 13.7 H VBG pH 7.56 H VBG pCO2 29.2 L Potassium 2.9 L* Chloride Glucose 112 H 02/11/18 22:55 WBC Monocytes % VBG pH VBG pCO2 Potassium Chloride 110 H Glucose 142 H Discharge <SHIN RAMIREZ - Last Filed: 02/11/18 23:50> <HORACIO ALBA - Last Filed: 02/12/18 02:54> - Discharge Clinical Impression: Viral upper respiratory illness, Hypokalemia Arrhythmia Qualifiers: Arrhythmia type: ventricular tachycardia Qualified Code(s): I47.2 - Ventricular tachycardia Condition: Stable Disposition: HOME, SELF-CARE Instructions: Upper Respiratory Illness ([facility]), Viral Syndrome ([facility]) Additional Instructions: Follow-up with cardiology first thing in the morning. You can call Dr. Yoo on his cell phone at [phone] to set up a follow-up appointment. He is expecting your phone call. Stop smoking. Follow-up with your primary care provider in 1-2 days. Return to the emergency department immediately if symptoms worsen or any additional concerns. Prescriptions: Hydrocodone Bit/Homatropine [Hycodan Syrup 5-1.5 mg/5 ml Ud Cup] 5 ml PO Q4HP PRN #120 ml PRN Reason: Forms: Smoking Cessation Education Referrals: REDDY MANTILLA MD [Primary Care Provider] - Follow up as needed DOMINGA YOO MD [ACTIVE STAFF] - Follow up as needed
[2018-02-11] MEDS ORDERED: HYDROCODONE/ACETAMINOPHEN 5-325 MG TABLET PO ONE (15:39)
--- NOTE | 2018-02-11 16:01 | RADIOLOGY REPORT (SQ) ---
EXAM DESCRIPTION: CHEST 2 VIEWS COMPLETED DATE/TIME: 02/11/2018 3:52 pm REASON FOR STUDY: cough COMPARISON: 02/08/2018 NUMBER OF VIEWS: One view. TECHNIQUE: Single frontal radiographic view of the chest acquired. LIMITATIONS: None. FINDINGS: LUNGS AND PLEURA: No opacities, masses or pneumothorax. No pleural effusion. MEDIASTINUM AND HILAR STRUCTURES: No masses. Contour normal. HEART AND VASCULAR STRUCTURES: Heart normal in size. Normal vasculature. BONES: No acute findings. HARDWARE: None in the chest. OTHER: No other significant finding. IMPRESSION: NO SIGNIFICANT RADIOGRAPHIC FINDING IN THE CHEST. TECHNICAL DOCUMENTATION: JOB ID: [id number] [employer]- All Rights Reserved Reading location - IP/workstation name: [email or web address]
[2018-02-11 16:40] LABS: ABSOLUTE LYMPHOCYTES (AUTO) 3.2 10^3/uL (0.5-4.7); ABSOLUTE MONOCYTES (AUTO) 1.4 10^3/uL (0.1-1.4); ABSOLUTE NEUT (AUTO) 5.9 10^3/uL (1.7-8.2); BASOPHILS % (AUTO) 0.2 % (0-2); HEMATOCRIT 39.9 % (36.0-47.0); HEMOGLOBIN 13.5 g/dL (12.0-15.5); LYMPHOCYTES % (AUTO) 30.5 % (13-45); MEAN CORPUSCULAR HEMOGLOBIN 29.4 pg (27.0-33.4); MEAN CORPUSCULAR HGB CONC 33.9 g/dL (32.0-36.0); MEAN CORPUSCULAR VOLUME 87 fl (80-97); MONOCYTES % (AUTO) 13.7 % (3-13); PLATELET COUNT 219 10^3/uL (150-450); RED CELL DISTRIBUTION WIDTH 13.4 % (11.5-14.0); SEGMENTED NEUTROPHILS % (AUTO) 55.6 % (42-78); TOTAL CELLS COUNTED % (AUTO) 100 %; WHITE BLOOD COUNT 10.6 10^3/uL (4.0-10.5)
[2018-02-11 16:55] LABS: ANION GAP 7 (5-19); BLOOD UREA NITROGEN 17 mg/dL (7-20); CALCIUM 9.4 mg/dL (8.4-10.2); CARBON DIOXIDE 29 mmol/L (22-30); CHLORIDE 104 mmol/L (98-107); GLUCOSE 112 mg/dL (75-110); SODIUM 139.9 mmol/L (137-145)
[2018-02-11 17:14] LABS: POTASSIUM 2.9 mmol/L (3.6-5.0)
[2018-02-11] MEDS ORDERED: POTASSIUM CHLORIDE 10 MEQ CAPSULE.ER PO ONE (17:18)
--- NOTE | 2018-02-11 17:21 | EKG REPORT ---
SEVERITY:- BORDERLINE ECG - SINUS RHYTHM PROBABLE LEFT ATRIAL ABNORMALITY : Confirmed by: Rula Chapa MD 11-Feb-2018 17:20:21
[2018-02-11] MEDS: POTASSI CL 20 MEQ/50 ML RIDER 20 MEQ/50 ML RTUPB IV SCH ×2 (18:51→21:16)
[2018-02-11 23:33] LABS: ANION GAP 7 (5-19); BLOOD UREA NITROGEN 13 mg/dL (7-20); CARBON DIOXIDE 23 mmol/L (22-30); CHLORIDE 110 mmol/L (98-107); GLUCOSE 142 mg/dL (75-110); SODIUM 139.9 mmol/L (137-145)
[2018-02-11 23:43] LABS: CALCIUM 8.6 mg/dL (8.4-10.2)
[2018-02-12 00:01] LABS: POTASSIUM 4.8 mmol/L (3.6-5.0)
[2018-02-12 01:34] VITALS: BP 100/51
--- NOTE | 2018-02-12 13:38 | EKG REPORT ---
SEVERITY:- BORDERLINE ECG - SINUS RHYTHM PROBABLE LEFT ATRIAL ABNORMALITY BORDERLINE T WAVE ABNORMALITIES : Confirmed by: Rula Chapa MD 12-Feb-2018 13:37:39
== END 2018-02-12 02:56 | disposition home or self-care (01) ==
LOC: ER 11:41
DX: I47.2 Ventricular tachycardia (principal); J06.9 Acute upper respiratory infection, unspecified; B97.89 Other viral agents as the cause of diseases classified elsewhere; E87.6 Hypokalemia; R07.9 Chest pain, unspecified; R06.02 Shortness of breath; R04.2 Hemoptysis; R09.81 Nasal congestion; R50.9 Fever, unspecified; R61 Generalized hyperhidrosis; R11.2 Nausea with vomiting, unspecified; R19.7 Diarrhea, unspecified; R63.0 Anorexia; F17.200 Nicotine dependence, unspecified, uncomplicated; J45.909 Unspecified asthma, uncomplicated
CPT/HCPCS: 93005; 94640 ×2; 99284; 96361; 96375; 96365; 96366; 36415; 83735; 85025; 80048; 84484; 82803; 71046; 93010; J2930; J1885; J3480; J7030; J7620

== ENCOUNTER → 2018-03-25 | Outpatient (CLI) | payer OTHER ==
--- NOTE | 2018-03-25 10:32 | RADIOLOGY REPORT (SQ) ---
EXAM DESCRIPTION: CHEST PA/LATERAL COMPLETED DATE/TIME: 03/25/2018 10:15 am REASON FOR STUDY: PRE-OP COMPARISON: 02/11/2018 EXAM PARAMETERS: NUMBER OF VIEWS: two views TECHNIQUE: Digital Frontal and Lateral radiographic views of the chest acquired. RADIATION DOSE: NA LIMITATIONS: none FINDINGS: LUNGS AND PLEURA: No opacities, masses or pneumothorax. No pleural effusion. MEDIASTINUM AND HILAR STRUCTURES: No masses or contour abnormalities. HEART AND VASCULAR STRUCTURES: Heart normal size. No evidence for failure. BONES: No acute findings. HARDWARE: Partially visualized cervical fusion hardware. OTHER: No other significant finding. IMPRESSION: No evidence of acute cardiopulmonary process. TECHNICAL DOCUMENTATION: JOB ID: [id number] [employer]- All Rights Reserved Reading location - IP/workstation name: [email or web address]
[2018-03-25 10:49] LABS: ABSOLUTE BASOPHILS # (AUTO) 0.1 10^3/uL (0.0-0.2); ABSOLUTE EOSINOPHILS # (AUTO) 0.4 10^3/uL (0.0-0.6); ABSOLUTE LYMPHOCYTES (AUTO) 2.3 10^3/uL (0.5-4.7); ABSOLUTE MONOCYTES (AUTO) 0.5 10^3/uL (0.1-1.4); ABSOLUTE NEUT (AUTO) 2.5 10^3/uL (1.7-8.2); BASOPHILS % (AUTO) 1.3 % (0-2); EOSINOPHILS % (AUTO) 6.4 % (0-6); HEMOGLOBIN 13.6 g/dL (12.0-15.5); LYMPHOCYTES % (AUTO) 40.3 % (13-45); MEAN CORPUSCULAR VOLUME 88 fl (80-97); MONOCYTES % (AUTO) 8.3 % (3-13); PLATELET COUNT 245 10^3/uL (150-450); RED BLOOD COUNT 4.52 10^6/uL (3.72-5.28); RED CELL DISTRIBUTION WIDTH 14.1 % (11.5-14.0); SEGMENTED NEUTROPHILS % (AUTO) 43.7 % (42-78); TOTAL CELLS COUNTED % (AUTO) 100 %; WHITE BLOOD COUNT 5.8 10^3/uL (4.0-10.5)
[2018-03-25 11:05] LABS: URINE AMPHETAMINES SCREEN NEGATIVE; URINE BARBITURATES SCREEN NEGATIVE; URINE BENZODIAZEPINES SCREEN NEGATIVE; URINE COCAINE SCREEN NEGATIVE; URINE MARIJUANA (THC) SCREEN NEGATIVE; URINE METHADONE SCREEN NEGATIVE; URINE PHENCYCLIDINE SCREEN NEGATIVE
[2018-03-25 11:09] LABS: ANION GAP 6 (5-19); BLOOD UREA NITROGEN 13 mg/dL (7-20); CALCIUM 9.6 mg/dL (8.4-10.2); CARBON DIOXIDE 31 mmol/L (22-30); CHLORIDE 107 mmol/L (98-107); GLUCOSE 93 mg/dL (75-110); POTASSIUM 5.2 mmol/L (3.6-5.0); SODIUM 143.7 mmol/L (137-145)
--- NOTE | 2018-03-26 00:28 | EKG REPORT ---
SEVERITY:- NORMAL ECG - SINUS RHYTHM : Confirmed by: Rula Chapa MD 26-Mar-2018 00:28:07
[2018-03-27 12:38] LABS: COTININE URINE Negative ng/mL (Cutoff=300)
== END ==
LOC: OD 09:35
PROVIDERS: ATTEND Orthopaedic Surgery
DX: Z01.89 Encounter for other specified special examinations (principal); J44.9 Chronic obstructive pulmonary disease, unspecified; G47.30 Sleep apnea, unspecified; Z01.811 Encounter for preprocedural respiratory examination; Z87.891 Personal history of nicotine dependence; Z01.810 Encounter for preprocedural cardiovascular examination; I99.9 Unspecified disorder of circulatory system; I11.0 Hypertensive heart disease with heart failure
CPT/HCPCS: 36415; 71046; 80048; 80307; 85025; 87070; 93005; 93010

== ENCOUNTER 2019-02-26 07:14 | Emergency (ER) | payer OTHER ==
--- NOTE | 2019-02-26 08:20 | RADIOLOGY REPORT (SQ) ---
EXAM DESCRIPTION: CHEST SINGLE VIEW COMPLETED DATE/TIME: 02/26/2019 7:56 am REASON FOR STUDY: Cough x 1 month COMPARISON: 03/25/2018 EXAM PARAMETERS: NUMBER OF VIEWS: One view. TECHNIQUE: Single frontal radiographic view of the chest acquired. RADIATION DOSE: NA LIMITATIONS: None. FINDINGS: LUNGS AND PLEURA: No opacities, masses or pneumothorax. No pleural effusion. MEDIASTINUM AND HILAR STRUCTURES: No masses. Contour normal. HEART AND VASCULAR STRUCTURES: Heart normal in size. Normal vasculature. BONES: No acute findings. HARDWARE: Interval placement of partially visualized neurostimulator catheter with the leads overlyi ng the lower thoracic spine. Partially visualized hardware anterior fusion lower cervical spine. OTHER: No other significant finding. IMPRESSION: 1. NO ACUTE RADIOGRAPHIC FINDING IN THE CHEST. TECHNICAL DOCUMENTATION: JOB ID: [id number] [email or web address]- All Rights Reserved Reading location - IP/workstation name: [email or web address]
[2019-02-26 08:33] LABS: ABSOLUTE EOSINOPHILS # (AUTO) 0.3 10^3/uL (0.0-0.6); ABSOLUTE LYMPHOCYTES (AUTO) 2.4 10^3/uL (0.5-4.7); ABSOLUTE MONOCYTES (AUTO) 0.6 10^3/uL (0.1-1.4); ABSOLUTE NEUT (AUTO) 6.5 10^3/uL (1.7-8.2); BASOPHILS % (AUTO) 0.4 % (0-2); EOSINOPHILS % (AUTO) 3.5 % (0-6); HEMATOCRIT 41.5 % (36.0-47.0); HEMOGLOBIN 14.1 g/dL (12.0-15.5); LYMPHOCYTES % (AUTO) 24.4 % (13-45); MEAN CORPUSCULAR HEMOGLOBIN 29.7 pg (27.0-33.4); MEAN CORPUSCULAR VOLUME 87 fl (80-97); MONOCYTES % (AUTO) 6.2 % (3-13); PLATELET COUNT 277 10^3/uL (150-450); RED BLOOD COUNT 4.76 10^6/uL (3.72-5.28); RED CELL DISTRIBUTION WIDTH 13.3 % (11.5-14.0); SEGMENTED NEUTROPHILS % (AUTO) 65.5 % (42-78); TOTAL CELLS COUNTED % (AUTO) 100 %
[2019-02-26 08:57] LABS: ALBUMIN 4.1 g/dL (3.5-5.0); ALKALINE PHOSPHATASE 70 U/L (38-126); ANION GAP 10 (5-19); ASPARTATE AMINO TRANSFERASE 20 U/L (14-36); BILIRUBIN,DIRECT 0.3 mg/dL (0.0-0.4); BILIRUBIN,TOTAL 0.7 mg/dL (0.2-1.3); BLOOD UREA NITROGEN 15 mg/dL (7-20); CALCIUM 9.6 mg/dL (8.4-10.2); CARBON DIOXIDE 26 mmol/L (22-30); CHLORIDE 105 mmol/L (98-107); GLUCOSE 97 mg/dL (75-110); POTASSIUM 4.2 mmol/L (3.6-5.0); TOTAL PROTEIN 7.1 g/dL (6.3-8.2)
[2019-02-26 09:00] LABS: APPEARANCE,URINE CLEAR; BILIRUBIN,URINE NEGATIVE (NEGATIVE); COLOR,URINE STRAW; GLUCOSE, URINE NEGATIVE (NEGATIVE); KETONES,URINE NEGATIVE (NEGATIVE); LEUKOCYTE ESTERASE,URINE NEGATIVE (NEGATIVE); NITRITE,URINE NEGATIVE (NEGATIVE); PROTEIN,URINE NEGATIVE (NEGATIVE); URINE SPECIFIC GRAVITY 1.006; UROBILINOGEN,URINE NEGATIVE mg/dL (<2.0)
[2019-02-26 09:55] VITALS: BP 130/82
--- NOTE | 2019-03-01 08:23 | ER Document Report ---
Entered by MIC WOOTEN SCRIBE 02/26/19 0917 Acting as scribe for:VINCE LARSEN IV, MD ED General - General Chief Complaint: Nausea/Vomiting/Diarrhea Stated Complaint: SORE THROAT/COUGH/BACK PAIN Time Seen by Provider: 02/26/19 08:14 Primary Care Provider: ARIELA ELLIOTT MD [Primary Care Provider] - Follow up as needed Mode of Arrival: Ambulatory Information source: Patient Notes: This 58 year old female patient presents to the emergency department today with complaints of a cough, sore throat, and diarrhea. Patient states that the diarrhea began one week ago and her sore throat and cough have been constant for x1 month. Patient states that she is a smoker. Patient states that she works long hours at work and she thinks she is "just worn down". TRAVEL OUTSIDE OF THE [place] IN LAST 30 DAYS: No - Related Data Allergies/Adverse Reactions: aspirin [Aspirin] Allergy (Verified 02/26/19 07:30) azithromycin [Azithromycin] Allergy (Verified 02/26/19 07:30) ketorolac tromethamine [From Toradol] Allergy (Verified 02/26/19 07:30) naproxen sodium [From Anaprox] Allergy (Verified 02/26/19 07:30) Penicillins Allergy (Verified 02/26/19 07:30) tetracycline [Tetracycline] Allergy (Verified 02/26/19 07:30) Past Medical History - General Information source: Patient - Social History Smoking Status: Current Every Day Smoker Cigarette use (# per day): Yes Drug Abuse: Marijuana Lives with: Family Family History: Reviewed & Not Pertinent Patient has suicidal ideation: No Patient has homicidal ideation: No Pulmonary Medical History: Reports: Hx Asthma - CHILD NO PROBLEMS ADULT Neurological Medical History: Reports: Hx Migraine Past Surgical History: Reports: Hx Hysterectomy, Hx Orthopedic Surgery - Bilateral knee, left foot and neck - Immunizations Hx Diphtheria, Pertussis, Tetanus Vaccination: No Review of Systems - Review of Systems Constitutional: No symptoms reported EENT: See HPI, Throat pain Cardiovascular: No symptoms reported Respiratory: See HPI, Cough Gastrointestinal: See HPI, Diarrhea Genitourinary: No symptoms reported Female Genitourinary: No symptoms reported Musculoskeletal: No symptoms reported Skin: No symptoms reported Hematologic/Lymphatic: No symptoms reported Neurological/Psychological: No symptoms reported -: Yes All other systems reviewed and negative Physical Exam - Vital signs Vitals: Temp Pulse Resp BP Pulse Ox 98.1 F 79 16 136/80 H 98 02/26/19 07:23 02/26/19 07:23 02/26/19 07:23 02/26/19 07:23 02/26/19 07:23 Interpretation: Normal - General General appearance: Appears well, Alert - HEENT Head: Normocephalic, Atraumatic Eyes: Normal Pupils: PERRL - Respiratory Respiratory status: No respiratory distress Chest status: Nontender Breath sounds: Other - coarse breath sounds Chest palpation: Normal - Cardiovascular Rhythm: Regular Heart sounds: Normal auscultation Murmur: No - Abdominal Inspection: Normal Distension: No distension Bowel sounds: Normal Tenderness: Nontender Organomegaly: No organomegaly - Back Back: Normal, Nontender - Extremities General upper extremity: Normal inspection, Nontender, Normal color, Normal ROM, Normal temperature General lower extremity: Normal inspection, Nontender, Normal color, Normal ROM, Normal temperature, Normal weight bearing. No: Soni's sign - Neurological Neuro grossly intact: Yes Cognition: Normal Orientation: AAOx4 [place] Coma Scale Eye Opening: Spontaneous [place] Coma Scale Verbal: Oriented [place] Coma Scale Motor: Obeys Commands [place] Coma Scale Total: 15 Speech: Normal Motor strength normal: LUE, RUE, LLE, RLE Sensory: Normal - Psychological Associated symptoms: Normal affect, Normal mood - Skin Skin Temperature: Warm Skin Moisture: Dry Skin Color: Normal Course - Re-evaluation Re-evalutation: 02/26/19 09:19 Results of ED MSE discussed with patient and patient's spouse. All questions were answered prior to discharge. - Vital Signs Vital signs: Temp Pulse Resp BP Pulse Ox 98.5 F 79 14 130/82 H 99 02/26/19 09:49 02/26/19 07:23 02/26/19 09:49 02/26/19 09:49 02/26/19 09:01 - Laboratory Result Diagrams: 02/26/19 08:10 02/26/19 08:10 Laboratory results interpreted by me: 02/26/19 08:10 Urine Blood SMALL H - Diagnostic Test Radiology reviewed: Reports reviewed Discharge - Discharge Clinical Impression: Tobacco abuse Acute bronchitis Qualifiers: Bronchitis organism: unspecified organism Qualified Code(s): J20.9 - Acute bronchitis, unspecified Condition: Good Disposition: HOME, SELF-CARE Additional Instructions: Return to the Emergency Department without delay if any worse. HOME CARE INSTRUCTIONS & INFORMATION: Thank you for choosing us for your medical needs. We hope you're satisfied with the care you received. After you leave, you must properly care for your problem and, at the same time, observe its progress. Any condition can change. Some illnesses can change rapidly over hours or days. If your condition worsens, return to the Emergency Department or see your physician promptly. ABOUT YOUR X-RAYS AND EKG'S: If you had an EKG or X-rays taken, they have been read by the Emergency Physician. The X-rays and EKG's will also be read by a Radiologist or Internal Controls Specialist within 24 hours. If discrepancies are noted, you will be notified by telephone. Please be certain the ED has a correct telephone number & address where you can be reached. Also, realize that some fractures or abnormalities do not show up on initial X-rays. If your symptoms continue, see your physician. ABOUT YOUR LABORATORY TEST: If you had laboratory tests, the results have been reviewed by the Emergency Physician. Some test results (for example cultures) may not be available for several days. You will be contacted if any test result shows you need additional treatment. Please be certain the ED has a correct telephone number and address where you can be reached. ABOUT YOUR MEDICATIONS: You will receive instructions on how to take your medicine on the prescription label you receive. Additional information may be provided by the Pharmacy. If you have questions afterwards, call the ED for clarification or further instructions. Some prescribed medications may cause drowsiness. Do not perform tasks such as driving a car or operating machinery without consulting your Pharmacist. If you feel you need a refill of pain medication, your condition will need re-evaluation. Please do not call for a refill of any medication. ABOUT YOUR SIGNATURE: Signature of this document acknowledges to followin. Understanding that you received emergency treatment and that you may be released before al medical problems are known or treated. Please be certain the ED has a correct phone number & address where you can be reached. 2. Acknowledgement that you will arrange for follow-up care as recommended. 3. Authorization for the Emergency Physician to provide information to your follow-up Physician in order to maximize your care. AT ANY TIME, IF YOUR SYMPTOMS CHANGE SIGNIFICANTLY OR WORSEN OR YOU DEVELOP NEW SYMPTOMS, RETURN TO THE EMERGENCY DEPARTMENT IMMEDIATELY FOR RE-EVALUATION. OUR GOAL IS TO PROVIDE EXCELLENT MEDICAL CARE! WE HOPE THAT WE HAVE MET YOUR EXPECTATIONS DURING YOUR EMERGENCY DEPARTMENT VISIT AND THAT YOU FEEL YOU HAVE RECEIVED EXCELLENT CARE! Bronchitis You have acute bronchitis. This disease is an infection or inflammation of the air passageways in your lungs. Symptoms usually include cough, low grade fever, shortness of breath, and wheezing. The cough usually persists for a couple of weeks. Most cases of bronchitis get better without antibiotics. We prescribe antibiotics when we believe bacteria are damaging your airways, or if there's high risk the bronchitis will worsen into pneumonia. Increase your fluid intake. A cool mist humidifier may make your lungs more comfortable. An expectorant (cough medicine that loosens phlegm) can help. If you smoke, STOP!!! Recovery from bronchitis can be somewhat slow, but you should see improvement within a day or two. Repeated episodes of bronchitis may result in lung damage -- for example, chronic bronchitis, recurrent pneumonias, or emphysema. Call the doctor if you develop increasing fever, shortness of breath, chest pain, bloody sputum, or otherwise worsen. If you have not improved at all after several days, contact the physician. Prescriptions: Hydrocodone/Chlorphen P-Stirex [Hydrocodone-Chlorphen ER Susp] 5 ml PO QHS PRN #60 ml PRN Reason: Cough Hydrocodone/Chlorphen P-Stirex [Hydrocodone-Chlorphen ER Susp] 5 ml PO QHS PRN #60 ml PRN Reason: Cough Prednisone [Deltasone 20 mg Tablet] 3 tab PO DAILY 5 Days tablet Forms: Return to Work Referrals: ARIELA ELLIOTT MD [Primary Care Provider] - Follow up as needed I personally performed the services described in the documentation, reviewed and edited the documentation which was dictated to the scribe in my presence, and it accurately records my words and actions.
== END 2019-02-26 09:55 | disposition home or self-care (01) ==
LOC: ER 07:14
DX: J20.9 Acute bronchitis, unspecified (principal); R11.2 Nausea with vomiting, unspecified; R19.7 Diarrhea, unspecified; J02.9 Acute pharyngitis, unspecified; R05 Cough; M54.9 Dorsalgia, unspecified; F17.210 Nicotine dependence, cigarettes, uncomplicated; J45.909 Unspecified asthma, uncomplicated
CPT/HCPCS: 36415; 71045; 80053; 81001; 85025; 87070; 87880; 96374; 96375; 99283

== ENCOUNTER → 2019-06-02 | Outpatient (CLI) | payer OTHER ==
[2019-06-02 10:48] LABS: ABSOLUTE BASOPHILS # (AUTO) 0.1 10^3/uL (0.0-0.2); ABSOLUTE EOSINOPHILS # (AUTO) 0.3 10^3/uL (0.0-0.6); ABSOLUTE LYMPHOCYTES (AUTO) 2.6 10^3/uL (0.5-4.7); ABSOLUTE MONOCYTES (AUTO) 0.4 10^3/uL (0.1-1.4); ABSOLUTE NEUT (AUTO) 4.8 10^3/uL (1.7-8.2); BASOPHILS % (AUTO) 0.8 % (0-2); EOSINOPHILS % (AUTO) 4.2 % (0-6); HEMATOCRIT 43.1 % (36.0-47.0); HEMOGLOBIN 14.8 g/dL (12.0-15.5); LYMPHOCYTES % (AUTO) 31.8 % (13-45); MEAN CORPUSCULAR HGB CONC 34.3 g/dL (32.0-36.0); MEAN CORPUSCULAR VOLUME 87 fl (80-97); MONOCYTES % (AUTO) 5.4 % (3-13); PLATELET COUNT 267 10^3/uL (150-450); RED BLOOD COUNT 4.94 10^6/uL (3.72-5.28); RED CELL DISTRIBUTION WIDTH 14.2 % (11.5-14.0); SEGMENTED NEUTROPHILS % (AUTO) 57.8 % (42-78); TOTAL CELLS COUNTED % (AUTO) 100 %; WHITE BLOOD COUNT 8.3 10^3/uL (4.0-10.5)
[2019-06-02 10:55] LABS: A TYPE INFLUENZA AG NEGATIVE (NEGATIVE); B INFLUENZA AG NEGATIVE (NEGATIVE)
[2019-06-02 11:00] LABS: ALBUMIN 4.4 g/dL (3.5-5.0); ALKALINE PHOSPHATASE 64 U/L (38-126); ANION GAP 5 (5-19); ASPARTATE AMINO TRANSFERASE 20 U/L (14-36); BLOOD UREA NITROGEN 16 mg/dL (7-20); CALCIUM 9.8 mg/dL (8.4-10.2); CARBON DIOXIDE 29 mmol/L (22-30); CHLORIDE 106 mmol/L (98-107); GLUCOSE 109 mg/dL (75-110); POTASSIUM 5.2 mmol/L (3.6-5.0)
--- NOTE | 2019-06-02 11:06 | RADIOLOGY REPORT (SQ) ---
EXAM DESCRIPTION: CHEST PA/LATERAL IMAGES COMPLETED DATE/TIME: 06/02/2019 10:39 am REASON FOR STUDY: COUGH COMPARISON: 02/26/2019 EXAM PARAMETERS: NUMBER OF VIEWS: two views TECHNIQUE: Digital Frontal and Lateral radiographic views of the chest acquired. RADIATION DOSE: NA LIMITATIONS: none FINDINGS: LUNGS AND PLEURA: No opacities, masses or pneumothorax. No pleural effusion. MEDIASTINUM AND HILAR STRUCTURES: No masses or contour abnormalities. HEART AND VASCULAR STRUCTURES: Heart normal size. No evidence for failure. BONES: No acute findings. HARDWARE: Partially visualized cervical fusion hardware. Spinal stimulator leads overlie midthoraci c spine. OTHER: No other significant finding. IMPRESSION: No focal airspace disease or other evidence of acute cardiopulmonary process. TECHNICAL DOCUMENTATION: JOB ID: [id number] [employer]- All Rights Reserved Reading location - IP/workstation name: [email or web address]
== END ==
LOC: OD 10:11
PROVIDERS: ATTEND Physician Assistant
DX: R05 Cough (principal)
CPT/HCPCS: 71046; 80053; 85025; 87804

== ENCOUNTER → 2019-06-03 | Outpatient (CLI) | payer OTHER ==
--- NOTE | 2019-06-03 09:54 | ER RDC ASSESSMENT REPORT ---
Intake - In the Last 14 days Have you traveled outside [place]?: No Have you been in close contact with someone CONFIRMED: No Worked in Healthcare?: No - Symptoms Subjective Fever([place] feverish): No Chills: No Muscule Aches: Yes Runny Nose: Yes Sore Throat: No Cough (New or worsening chronic cough): Yes Shortness of breath: No Nausea or Vomiting: Yes Headache: Yes Abdominal Pain: Yes Diarrhea(3 or more loose stools in last 24 hours): Yes - Do you have any of the following Chronic lung disease: Asthma or emphysema or COPD: Yes Chronic Lung Disease Comment: asthma Cystic Fibrosis: No Diabetes: No High Blood Pressure: No Cardiovascular Disease: No Chronic Kidney Disease: No Chronic Liver Disease: No Chronic blood disorder like Sickle Cell Disease: No Weak immune system due to disease or medication: No Neurologic condition that limits movement: Yes 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 Patient reports upper respiratory symptoms without shortness of breath. Patient does have underlying history of asthma. Patient does smoke half pack per day. - Related Data Allergies/Adverse Reactions: aspirin [Aspirin] Allergy (Verified 02/26/19 07:30) azithromycin [Azithromycin] Allergy (Verified 02/26/19 07:30) ketorolac tromethamine [From Toradol] Allergy (Verified 02/26/19 07:30) naproxen sodium [From Anaprox] Allergy (Verified 02/26/19 07:30) Penicillins Allergy (Verified 02/26/19 07:30) tetracycline [Tetracycline] Allergy (Verified 02/26/19 07:30) Past Medical History - General Information source: Patient - Social History Smoking Status: Current Every Day Smoker Family History: Reviewed & Not Pertinent - Past Medical History Cardiac Medical History: Denies: Hx Heart Attack, Hx Hypertension Pulmonary Medical History: Reports: Hx Asthma - CHILD NO PROBLEMS ADULT Neurological Medical History: Reports: Hx Migraine. Denies: Hx Cerebrovascular Accident, Hx Seizures Renal/ Medical History: Denies: Hx Peritoneal Dialysis GI Medical History: Denies: Hx Hepatitis, Hx Hiatal Hernia, Hx Ulcer Infectious Medical History: Denies: Hx Hepatitis Past Surgical History: Reports: Hx Hysterectomy, Hx Orthopedic Surgery - Bilateral knee, left foot and neck. Denies: Hx Mastectomy, Hx Open Heart Surgery, Hx Pacemaker Physical Exam - General General appearance: Appears well, Alert In distress: None Notes: PHYSICAL EXAMINATION: GENERAL: Well-appearing and in no acute distress. HEAD: Atraumatic, normocephalic. EYES: sclera anicteric, conjunctiva are normal. ENT: nares patent. Moist mucous membranes. NECK: Normal range of motion, supple LUNGS: CTAB and equal. No wheezes rales or rhonchi, occasional dry cough. HEART: Regular rate and rhythm without murmurs EXTREMITIES: Normal range of motion NEUROLOGICAL: Normal speech. PSYCH: Normal mood, normal affect. SKIN: Warm, Dry, normal turgor Diagnostic Results Laboratory Results: The patient was evaluated during the global Covid 19 pandemic, and that diagnosis was suspected/considered upon their initial presentation. Their evaluation, treatment and testing was consistent with current guidelines for patients who present with complaints or symptoms that may be related to Covid 19. Patient presents with upper respiratory symptoms worrisome for possible Covid 19. Patient does not have emergency worrying symptoms such as difficulty breathing, shortness of breath, chest pain, pressure, confusion or cyanosis. Patient appears suitable for discharge as they are not of an advanced age, do not have any chronic medical conditions such as diabetes, CAD, immune deficiency, or chronic kidney disease. Patient's vital signs are stable and patient is nontoxic in appearance. Good return precautions have been discussed with patient, patient verbalized understanding and is agreeable with discharge plan of care at this time. Labs- Entire Visit 06/03/19 06/03/19 10:02 10:04 Influenza A (Rapid) NEGATIVE Influenza B (Rapid) NEGATIVE Group A Strep Rapid NEGATIVE Patient Education/Counseling Counseling/Education: Patient was provided with discharge information including: As a person under investigation for Covid 19, the [facility], division of public health advises you to adhere to the following guidance until your test results are reported to you. If your test result is positive, you will receive additional information from your provider and your local health department at that time. Remain at home until you are cleared by the health provider or public health authorities. Keep a log of visitors to your home, notify any visitors to your home of your isolation status. If you plan to move to a new address or leave the county, notify the local health department in your County. Call your doctor or seek care if you have an urgent medical need. Before seeking medical care, call ahead to get instructions from the provider before arriving at the medical office clinic or hospital. Notify them that you are being tested for the virus that causes Covid 19 so that arrangements can be made, as necessary, to prevent transmission to others in the healthcare setting. Next, notify the local health department in your county. If a medical emergency arises and you need to call 911, inform the first responders that you are being tested for the virus that causes Covid 19. Next, notify the local health department in your county. RDC Discharge - Discharge Clinical Impression: covid 19 screening Upper respiratory infection Qualifiers: URI type: unspecified URI Qualified Code(s): J06.9 - Acute upper respiratory infection, unspecified Condition: Stable Disposition: Home; Selfcare
[2019-06-03 10:14] VITALS: BP 123/79
[2019-06-03 11:13] LABS: A TYPE INFLUENZA AG NEGATIVE (NEGATIVE); B INFLUENZA AG NEGATIVE (NEGATIVE)
== END ==
LOC: RDC 09:36
PROVIDERS: ATTEND Nurse Practitioner Family
DX: J06.9 Acute upper respiratory infection, unspecified (principal); Z20.828 Contact with and (suspected) exposure to other viral communicable diseases; R05 Cough; R09.89 Other specified symptoms and signs involving the circulatory and respiratory systems; M79.10 Myalgia, unspecified site; R51 Headache; R11.0 Nausea; R10.9 Unspecified abdominal pain; R19.7 Diarrhea, unspecified; J45.909 Unspecified asthma, uncomplicated; Z88.0 Allergy status to penicillin; Z88.1 Allergy status to other antibiotic agents; Z88.6 Allergy status to analgesic agent; Z88.8 Allergy status to other drugs, medicaments and biological substances
CPT/HCPCS: 87070; 87635; 87804; 87880; 99211

== ENCOUNTER 2019-08-15 11:45 | Emergency (ER) | payer OTHER ==
--- NOTE | 2019-08-15 13:02 | ER Document Report ---
ED Medical Screen (RME) - General Chief Complaint: Flank Pain Stated Complaint: BACK PAIN Time Seen by Provider: 08/15/19 12:53 Primary Care Provider: LISE MARTÍNEZ PA-C [Primary Care Provider] - Follow up as needed Mode of Arrival: Ambulatory Information source: Patient Notes: 59-year-old female presented to ED for mid to lower back pain. She has severe right flank tenderness. She states she has a history of chronic low back pain takes Robaxin and circumflex Lyrica for that but this is not her normal back pain. She does have a history of left foot surgery for bunionectomy she also has a partial hysterectomy knee surgery and neck surgery. She does smoke a half a pack a day, does not drink alcohol and does occasionally smoke marijuana. She is alert oriented respirations regular nonlabored speaking in full sentences. She does have a history of asthma and chronic back pain. She states her urine has been dark recently. I have greeted and performed a rapid initial assessment of this patient. A comprehensive ED assessment and evaluation of the patient, analysis of test results and completion of medical decision making process will be conducted by an additional ED providers. TRAVEL OUTSIDE OF THE [place] IN LAST 30 DAYS: No - Related Data Allergies/Adverse Reactions: aspirin [Aspirin] Allergy (Verified 08/15/19 12:47) azithromycin [Azithromycin] Allergy (Verified 08/15/19 12:47) ketorolac tromethamine [From Toradol] Allergy (Verified 08/15/19 12:47) naproxen sodium [From Anaprox] Allergy (Verified 08/15/19 12:47) Penicillins Allergy (Verified 08/15/19 12:47) tetracycline [Tetracycline] Allergy (Verified 08/15/19 12:47) Past Medical History - Social History Drug Abuse: Marijuana - Past Medical History Cardiac Medical History: Denies: Hx Heart Attack, Hx Hypertension Pulmonary Medical History: Reports: Hx Asthma Neurological Medical History: Reports: Hx Migraine. Denies: Hx Cerebrovascular Accident, Hx Seizures Renal/ Medical History: Denies: Hx Peritoneal Dialysis GI Medical History: Denies: Hx Hepatitis, Hx Hiatal Hernia, Hx Ulcer Infectious Medical History: Denies: Hx Hepatitis Past Surgical History: Reports: Hx Hysterectomy, Hx Orthopedic Surgery. Denies: Hx Mastectomy, Hx Open Heart Surgery, Hx Pacemaker - Immunizations Hx Diphtheria, Pertussis, Tetanus Vaccination: No Physical Exam - Vital signs Vitals: Temp Pulse Resp BP Pulse Ox 98.5 F 87 20 124/82 100 08/15/19 11:50 08/15/19 11:50 08/15/19 11:50 08/15/19 11:50 08/15/19 11:50 Course - Vital Signs Vital signs: Temp Pulse Resp BP Pulse Ox 98.5 F 87 20 124/82 100 08/15/19 11:50 08/15/19 11:50 08/15/19 11:50 08/15/19 11:50 08/15/19 11:50 Doctor's Discharge - Discharge Referrals: LISE MARTÍNEZ PA-C [Primary Care Provider] - Follow up as needed
--- NOTE | 2019-08-15 13:44 | RADIOLOGY REPORT (SQ) ---
EXAM DESCRIPTION: CT ABD/PELVIS NO ORAL OR IV IMAGES COMPLETED DATE/TIME: 08/15/2019 1:29 pm REASON FOR STUDY: Right flank pain COMPARISON: None. TECHNIQUE: CT scan of the abdomen and pelvis performed without intravenous or oral contrast. Images reviewed with lung, soft tissue, and bone windows. Reconstructed coronal and sagittal MPR images revi ewed. All images stored on PACS. All CT scanners at this facility use dose modulation, iterative reconstruction, and/or weight based d osing when appropriate to reduce radiation dose to as low as reasonably achievable (ALARA). [facility]: Dose Right [facility]: CareDose [facility]: Dose Right [facility]: Teradose 4D [facility]: Smart Sponsify RADIATION DOSE: CT Rad equipment meets quality standard of care and radiation dose reduction techniq ues were employed. CTDIvol: 14.4 mGy. DLP: 798 mGy-cm.mGy. LIMITATIONS: None. FINDINGS: LOWER CHEST: No significant findings. No nodules or infiltrates. NON-CONTRASTED LIVER, SPLEEN, ADRENALS: Evaluation limited by lack of IV contrast. No identified sign ificant masses. PANCREAS: No masses. No peripancreatic inflammatory changes. GALLBLADDER: No calcified stones. No inflammatory changes to suggest cholecystitis. RIGHT KIDNEY AND URETER: No cysts identified. No solid masses. No calcified stones. No hydronephrosis or hydroureter. LEFT KIDNEY AND URETER: No cysts identified. No solid masses. No calcified stones. No hydronephrosis or hydroureter. AORTA AND RETROPERITONEUM: No aneurysm. No retroperitoneal masses or adenopathy. BOWEL AND PERITONEAL CAVITY: No obvious masses or inflammatory changes. No free fluid. APPENDIX: Normal. PELVIS, BLADDER, AND ABDOMINAL WALL:Prior hysterectomy No free fluid. Unremarkable bladder. BONES: No acute findings. OTHER: Thoracic nerve stimulator device. IMPRESSION: NO ACUTE FINDINGS. TECHNICAL DOCUMENTATION: JOB ID: [id number] [place]-72 Quality ID # [id number]: Final reports with documentation of one or more dose reduction techniques (e.g., Au tomated exposure control, adjustment of the mA and/or kV according to patient size, use of iterative reconstruction technique) 2010 [employer]- All Rights Reserved Reading location - IP/workstation name: [email or web address]
[2019-08-15 13:47] LABS: ABSOLUTE EOSINOPHILS # (AUTO) 0.5 10^3/uL (0.0-0.6); ABSOLUTE LYMPHOCYTES (AUTO) 3.4 10^3/uL (0.5-4.7); ABSOLUTE MONOCYTES (AUTO) 0.5 10^3/uL (0.1-1.4); ABSOLUTE NEUT (AUTO) 4.3 10^3/uL (1.7-8.2); BASOPHILS % (AUTO) 0.3 % (0-2); EOSINOPHILS % (AUTO) 5.3 % (0-6); HEMATOCRIT 44.3 % (36.0-47.0); HEMOGLOBIN 15.2 g/dL (12.0-15.5); LYMPHOCYTES % (AUTO) 38.9 % (13-45); MEAN CORPUSCULAR HEMOGLOBIN 30.3 pg (27.0-33.4); MEAN CORPUSCULAR HGB CONC 34.2 g/dL (32.0-36.0); MEAN CORPUSCULAR VOLUME 89 fl (80-97); MONOCYTES % (AUTO) 6.2 % (3-13); PLATELET COUNT 281 10^3/uL (150-450); RED BLOOD COUNT 5.01 10^6/uL (3.72-5.28); RED CELL DISTRIBUTION WIDTH 14.4 % (11.5-14.0); SEGMENTED NEUTROPHILS % (AUTO) 49.3 % (42-78); TOTAL CELLS COUNTED % (AUTO) 100 %; WHITE BLOOD COUNT 8.6 10^3/uL (4.0-10.5)
[2019-08-15 13:50] LABS: APPEARANCE,URINE SLIGHTLY-CLOUDY; BILIRUBIN,URINE NEGATIVE (NEGATIVE); COLOR,URINE YELLOW; GLUCOSE, URINE NEGATIVE (NEGATIVE); KETONES,URINE NEGATIVE (NEGATIVE); LEUKOCYTE ESTERASE,URINE NEGATIVE (NEGATIVE); NITRITE,URINE NEGATIVE (NEGATIVE); PROTEIN,URINE NEGATIVE (NEGATIVE); URINE SPECIFIC GRAVITY 1.018; UROBILINOGEN,URINE NEGATIVE mg/dL (<2.0)
[2019-08-15 13:58] LABS: ALBUMIN 4.4 g/dL (3.5-5.0); ALKALINE PHOSPHATASE 72 U/L (38-126); ANION GAP 6 (5-19); ASPARTATE AMINO TRANSFERASE 23 U/L (14-36); BILIRUBIN,TOTAL 0.8 mg/dL (0.2-1.3); BLOOD UREA NITROGEN 12 mg/dL (7-20); CALCIUM 9.5 mg/dL (8.4-10.2); CARBON DIOXIDE 29 mmol/L (22-30); CHLORIDE 104 mmol/L (98-107); CREATINE KINASE 44 U/L (30-135); GLUCOSE 96 mg/dL (75-110); POTASSIUM 5.2 mmol/L (3.6-5.0); TOTAL PROTEIN 7.1 g/dL (6.3-8.2)
[2019-08-15] MEDS ORDERED: HYDROMORPHONE HCL 2 MG TABLET PO ONE (14:29)
[2019-08-15] MEDS ORDERED: LORAZEPAM INJ 2 MG/1 ML VIAL IV ONE (14:29)
[2019-08-15] MEDS ORDERED: DEXAMETHASONE SOD PHOS INJ 10 MG/1 ML VIAL IV ONE (14:29)
--- NOTE | 2019-08-15 14:30 | ER Document Report ---
ED Neck/Back Problem - General Chief Complaint: Flank Pain Stated Complaint: BACK PAIN Time Seen by Provider: 08/15/19 12:53 Primary Care Provider: LISE MARTÍNEZ PA-C [PHYSICIAN [facility]] - Follow up as needed Mode of Arrival: Ambulatory Information source: Patient Notes: 59-year-old woman presents to the emergency department with a complaint of right lower back pain. She states symptoms began on Friday and have worsened since that time. She had to leave work today because the pain became so severe. She denies radiation of pain or loss of urine or bowel continence. She denies a history of similar episodes. She went camping last week and slept been sleeping bags, however denies a known injury. TRAVEL OUTSIDE OF THE [place] IN LAST 30 DAYS: No - Related Data Allergies/Adverse Reactions: aspirin [Aspirin] Allergy (Verified 08/15/19 12:47) azithromycin [Azithromycin] Allergy (Verified 08/15/19 12:47) ketorolac tromethamine [From Toradol] Allergy (Verified 08/15/19 12:47) naproxen sodium [From Anaprox] Allergy (Verified 08/15/19 12:47) Penicillins Allergy (Verified 08/15/19 12:47) tetracycline [Tetracycline] Allergy (Verified 08/15/19 12:47) Past Medical History - General Information source: Patient - Social History Smoking Status: Current Every Day Smoker Drug Abuse: Marijuana Family History: Reviewed & Not Pertinent Patient has homicidal ideation: No - Past Medical History Cardiac Medical History: Denies: Hx Heart Attack, Hx Hypertension Pulmonary Medical History: Reports: Hx Asthma Neurological Medical History: Reports: Hx Migraine. Denies: Hx Cerebrovascular Accident, Hx Seizures Renal/ Medical History: Denies: Hx Peritoneal Dialysis GI Medical History: Denies: Hx Hepatitis, Hx Hiatal Hernia, Hx Ulcer Infectious Medical History: Denies: Hx Hepatitis Past Surgical History: Reports: Hx Hysterectomy, Hx Orthopedic Surgery. Denies: Hx Mastectomy, Hx Open Heart Surgery, Hx Pacemaker - Immunizations Hx Diphtheria, Pertussis, Tetanus Vaccination: No Review of Systems - Review of Systems Notes: Constitutional: Negative for fever. HENT: Negative for sore throat. Eyes: Negative for visual changes. Cardiovascular: Negative for chest pain. Respiratory: Negative for shortness of breath. Gastrointestinal: Negative for abdominal pain, vomiting or diarrhea. Genitourinary: Negative for dysuria. Musculoskeletal: + Back pain. Skin: Negative for rash. Neurological: Negative for headaches, weakness or numbness. 10 point ROS negative except as marked above and in HPI. Physical Exam - Vital signs Vitals: Temp Pulse Resp BP Pulse Ox 98.5 F 87 20 124/82 100 08/15/19 11:50 08/15/19 11:50 08/15/19 11:50 08/15/19 11:50 08/15/19 11:50 - Notes Notes: PHYSICAL EXAMINATION: Physical Exam: General: Well-nourished well-developed 59-year-old woman in mild distress secondary to pain in the right lower back. HEENT: NC/AT, pupils equal round and reactive to light, MM moist,nares clear, oropharynx clear, airway patent Neck: supple, no adenopathy, no masses. Good range of motion Lungs: Clear with no wheezes rales or rhonchi CVS: Regular rate and rhythm no murmur gallop or rub Abdomen: Soft, active, nontender, no masses, no hepatosplenomegaly Back: No midline tenderness, tenderness in the right paraspinous lumbar muscle group, no tenderness on the left side. Ext: No edema, clubbing or cyanosis. Neuro: Alert and responsive, moving all 4 extremities on command, cranial nerves intact, no focal findings Skin: Intact no open lesions, no rash PSYCH: Normal mood, normal affect. Course - Re-evaluation Re-evalutation: 08/15/19 19:43 Patient was given IV medications Decadron 10 mg IV, hydromorphone 0.5 mg IV, Lorazepam 1 mg IV. Patient has significant improvement in her pain and is resting quietly 30 minutes after the medications are given. X-ray of the lumbosacral spine reveals no significant degenerative disc disease. CT scan of the abdomen and pelvis performed via the front end process was also negative. Patient has been discharged home with baclofen 10 mg and Demerol 50 mg. It is noted the patient is allergic to aspirin and Toradol. I encouraged her to follow-up with her primary care doctor as physical therapy may be needed to help control her symptoms. Patient acknowledges understanding of this plan and will follow-up with her primary care doctor. - Vital Signs Vital signs: Temp Pulse Resp BP Pulse Ox 98.2 F 88 12 114/69 98 08/15/19 17:44 08/15/19 17:44 08/15/19 17:44 08/15/19 17:44 08/15/19 17:44 - Laboratory Result Diagrams: 08/15/19 13:30 08/15/19 13:30 Laboratory results interpreted by me: 08/15/19 08/15/19 08/15/19 13:30 13:30 13:30 RDW 14.4 H Potassium 5.2 H Urine Blood SMALL H 08/15/19 19:46 I have reviewed laboratory data and used this information for the treatment decisions regarding the patient. - Diagnostic Test Radiology reviewed: Image reviewed, Reports reviewed Radiology results interpreted by me: 08/15/19 19:47 X-ray lumbar spine: No acute fracture or significant degenerative disc disease. CT the abdomen pelvis without contrast: No acute findings noted. Discharge - Discharge Clinical Impression: Muscle spasm Low back pain Qualifiers: Chronicity: acute Back pain laterality: right Sciatica presence: without sci atica Qualified Code(s): M54.5 - Low back pain Condition: Good Disposition: HOME, SELF-CARE Instructions: Ice Packs ([facility]), Low Back Pain ([facility]) Additional Instructions: You are seen in the emergency department today and treated for low back pain. The x-ray did not show compression fracture or other bony abnormality. We will also discharge you home with muscle relaxant and medication for pain. You may use a cold compress to the area of pain to help relax the muscles. I encourage you to follow-up with your primary care doctor if your symptoms continue. Your symptoms are worsening or if there are other concerns return to the emergency department. HOME CARE INSTRUCTIONS & INFORMATION: Thank you for choosing us for your medical needs. We hope you're satisfied with the care you received. After you leave, you must properly care for your problem and, at the same time, observe its progress. Any condition can change. Some illnesses can change rapidly over hours or days. If your condition worsens, return to the Emergency Department or see your physician promptly. ABOUT YOUR X-RAYS AND EKG'S: If you had an EKG or X-rays taken, they have been read by the Emergency Physician. The X-rays and EKG's will also be read by a Radiologist or Technical Project Coordinator within 24 hours. If discrepancies are noted, you will be notified by telephone. Please be certain the ED has a correct telephone number & address where you can be reached. Also, realize that some fractures or abnormalities do not show up on initial X-rays. If your symptoms continue, see your physician. ABOUT YOUR LABORATORY TEST: If you had laboratory tests, the results have been reviewed by the Emergency Physician. Some test results (for example cultures) may not be available for several days. You will be contacted if any test result shows you need additional treatment. Please be certain the ED has a correct telephone number and address where you can be reached. ABOUT YOUR MEDICATIONS: You will receive instructions on how to take your medicine on the prescription label you receive. Additional information may be provided by the Pharmacy. If you have questions afterwards, call the ED for clarification or further instructions. Some prescribed medications may cause drowsiness. Do not perform tasks such as driving a car or operating machinery without consulting your Pharmacist. If you feel you need a refill of pain medication, your condition will need re-evaluation. Please do not call for a refill of any medication. ABOUT YOUR SIGNATURE: Signature of this document acknowledges to followin. Understanding that you received emergency treatment and that you may be r eleased before al medical problems are known or treated. Please be certain the ED has a correct phone number & address where you can be reached. 2. Acknowledgement that you will arrange for follow-up care as recommended. 3. Authorization for the Emergency Physician to provide information to your follow-up Physician in order to maximize your care. AT ANY TIME, IF YOUR SYMPTOMS CHANGE SIGNIFICANTLY OR WORSEN OR YOU DEVELOP NEW SYMPTOMS, RETURN TO THE EMERGENCY DEPARTMENT IMMEDIATELY FOR RE-EVALUATION. OUR GOAL IS TO PROVIDE EXCELLENT MEDICAL CARE! WE HOPE THAT WE HAVE MET YOUR EXPECTATIONS DURING YOUR EMERGENCY DEPARTMENT VISIT AND THAT YOU FEEL YOU HAVE RECEIVED EXCELLENT CARE! Prescriptions: Tramadol HCl [Ultram 50 mg Tablet] 50 mg PO Q4HP PRN #12 tab PRN Reason: Baclofen [Baclofen 10 mg Tablet] 10 mg PO TID #30 tab Forms: Return to Work Referrals: LISE MARTÍNEZ PA-C [PHYSICIAN [facility]] - Follow up as needed
--- NOTE | 2019-08-15 15:02 | RADIOLOGY REPORT (SQ) ---
EXAM DESCRIPTION: L SPINE WHOLE IMAGES COMPLETED DATE/TIME: 08/15/2019 2:50 pm REASON FOR STUDY: Low back pain COMPARISON: 01/03/2016 NUMBER OF VIEWS: Five views including obliques. TECHNIQUE: AP, lateral, oblique, and sacral radiographic images acquired of the lumbar spine. LIMITATIONS: None. FINDINGS: MINERALIZATION: Normal. SEGMENTATION: Normal. No transitional anatomy. ALIGNMENT: Normal. VERTEBRAE: Maintained height. No fracture or worrisome bone lesion. DISCS: Multilevel disc space narrowing with osteophytes. POSTERIOR ELEMENTS: Pedicles and facets are intact. No pars defect or posterior arch defects. Facet arthropathy is present. HARDWARE: Lower thoracic nerve stimulator device. PARASPINAL SOFT TISSUES: Normal. PELVIS: Intact as visualized. No fractures or worrisome bone lesions. SI joints intact. OTHER: No other significant finding. IMPRESSION: SPONDYLOSIS WITHOUT BONE LESION OR FRACTURE. TECHNICAL DOCUMENTATION: JOB ID: [id number] [place]-[id number] 2010 [employer]- All Rights Reserved Reading location - IP/workstation name: [email or web address]
[2019-08-15 17:45] VITALS: BP 114/69
== END 2019-08-15 17:43 | disposition home or self-care (01) ==
LOC: ER 11:45
DX: M54.5 Low back pain (principal); M62.838 Other muscle spasm; F12.10 Cannabis abuse, uncomplicated; J45.909 Unspecified asthma, uncomplicated; Z88.8 Allergy status to other drugs, medicaments and biological substances; Z88.1 Allergy status to other antibiotic agents; Z88.0 Allergy status to penicillin
CPT/HCPCS: 99284; 96374; 96375; 36415; 82550; 85025; 80053; 81001; 72110; 74176; J2060; J1100